=== PATIENT | female | born 1975 | race Caucasian/White ===

== ENCOUNTER 2019-12-03 10:21 | Outpatient (CLI) | payer OTHER, SELFPAY ==
--- NOTE | 2020-01-03 12:05 | WPDHOLTEREM ---
Holter/Event Monitor Holter/Event Monitor Date of procedure: 12/03/19 Procedure Type: 30 day event monitor Indications: Palpitations Conclusion: 1. 30 day event monitor between 12/03/19-01/01/20. This is a symptoms and triggered events only. There are 66 available transmissions for analysis. 2. Predominant rhythm is sinus rhythm, HR range 47-158 bpm. 3. There are occasional premature supraventricular complexes. There are 3 episodes of atrial tachycardia/PSVT, fastest at 153 bpm and longest lasting 22 beats. 4. There are occasional premature ventricular complexes. No ventricular tachycardia. 5. No significan pauses greater than 3 seconds. 6. Patient reports 53 episodes of symptoms of shortness of breath, heart racing, skipped beats, chest pain, dizziness, symptoms other than listed which demonstarte sinus rhythm, HR range 47-130 bpm, the 3 episodes of atrial tachycardia/PSVT described above and occasional PAC's and PVC.
== END 2019-12-03 10:22 | disposition home or self-care (01) ==
LOC: CHSCARD 10:26
PROVIDERS: PCP Internal Medicine; Visit Provider Internal Medicine
DX: R00.2 Palpitations (principal)
CPT/HCPCS: 93270

== ENCOUNTER 2019-12-10 08:41 | Outpatient (CLI) | payer OTHER, SELFPAY ==
--- NOTE | ~2019-12-10 | US_ITS ---
EXAMINATION: US thyroid DATE: 12/10/2019 09:02 INDICATION: Thyroiditis TECHNIQUE: Multiple ultrasound images of the thyroid were obtained. COMPARISON: None. FINDINGS: The right thyroid lobe measures 4.2 x 1.6 x 1.7 cm. The left thyroid lobe measures 4.2 x 1.1 x 1.5 c m. The thyroid isthmus measures 2 mm in thickness. There is mildly heterogeneous echogenicity with co arsened echotexture and mildly increased vascular flow on color Doppler both the left and right thyro id lobes consistent with given history of thyroiditis. No discrete nodules identified. IMPRESSION: 1. Mildly heterogeneous thyroid echogenicity with coarsened echotexture and mildly increased vascular flow on color Doppler consistent with given history of thyroiditis. No thyroid nodules identified. Reviewed, dictated and finalized at location A. IMPRESSION: 1. Mildly heterogeneous thyroid echogenicity with coarsened echotexture and mil dly increased vascular flow on color Doppler consistent with given history of t hyroiditis. No thyroid nodules identified.
== END 2019-12-10 08:42 | disposition home or self-care (01) ==
LOC: CHSIMG 08:43
PROVIDERS: PCP Internal Medicine; Visit Provider Internal Medicine
DX: E06.9 Thyroiditis, unspecified (principal)
CPT/HCPCS: 76536

== ENCOUNTER 2021-02-17 20:29 | Emergency (ER) | payer OTHER, SELFPAY ==
--- NOTE | ~2021-02-17 | CT_ITS ---
EXAMINATION: CT abdomen pelvis w con EXAM DATE: 02/17/2021 22:23 INDICATION: Right adnexal adnexal pain. Appendectomy. TECHNIQUE: Spiral CT of the abdomen and pelvis was performed following intravenous injection of 100 m L Omnipaque 350. Axial, coronal and sagittal images of the abdomen and pelvis were reviewed. The do se-length product (DLP) for this examination was 603.41 mGy-cm. The exposure was tailored according to patient size (auto mA exposure control), and iterative reconstruction (ASIR) was used as additiona l dose reduction technique. There is no prior study for comparison. FINDINGS: There is a central liver cyst measuring 1.5 cm. The liver, spleen, adrenal glands and panc reas are otherwise unremarkable. Small splenule. There is cholelithiasis within an otherwise unremar kable gallbladder. No evidence of obstructive biliary disease. Portal and splenic veins are patent. Kidneys enhance symmetrically. There is no hydronephrosis. The uterus is unremarkable. Both ovaries are normal in size. The right ovary is contiguous to the cec al base. The appendix is not identified and there is no regional acute inflammatory change or abscess . The bladder is unremarkable. There is no retroperitoneal or pelvic lymphadenopathy. The stomach and small bowel are unremarkable. There is expected amount of colonic stool. No free i ntraperitoneal gas. The heart is normal in size. There are no pericardial or pleural effusions. T he lung bases are unremarkable. There are no osteoblastic or osteolytic lesions identified. IMPRESSION: 1. No acute intra-abdominal findings. Unremarkable ovaries. 2. Cholelithiasis. Reviewed, dictated and finalized at location A.
[2021-02-17 20:45] VITALS: BP 147/93; PULSE 82; RESP 18; TEMP 36.3; O2SAT 98
--- NOTE | 2021-02-17 21:05 | ED.FEMALEGU ---
HPI - Female Genitourinary General Chief complaint: PHOTOC[employer]YING [employer]MENT [employer]ER Stated complaint: abd pain Time Seen by Provider: 02/17/21 20:40 Source: patient and RN notes reviewed Mode of arrival: ambulatory Limitations: no limitations History of Present Illness HPI Narrative: RLQ abdominal pain x this PM MD elicited complaint: back pain Pertinent past history: pyelonephritis Onset (ago): hour(s) Location of symptoms: RLQ Severity: moderate Severity scale (1-10): 8 Quality of pain: cramping, dull and aching Consistency: constant Vaginal discharge: none Vaginal bleeding: none Exacerbating factors: none Relieving factors: none Associated symptoms: abdominal pain and back pain Treatment prior to arrival: none Related Data Allergies Allergy/AdvReac Type Severity Reaction Status Date / Time Quinolones Allergy Mild Swelling Verified 08/22/19 17:20 azithromycin Allergy Hives Verified 08/22/19 17:20 Review of Systems Review of Systems: All systems reviewed & are unremarkable except as noted in HPI and below Constitutional: Constitutional: Reports as per HPI and Reports no additional constitutional complaints Eyes: Eyes: Reports as per HPI and Reports no additional eye complaints ENT: Reports system reviewed and no additional complaints, except as documented and Reports as per HPI Cardiovascular: Cardiovascular: Reports as per HPI and Reports no additional cardiovascular complaints Respiratory: Respiratory: Reports as per HPI and Reports no additional respiratory complaints Gastrointestinal: Gastrointestinal: Reports as per HPI and Reports no additional gastrointestinal complaints Genitourinary: Genitourinary: Reports pelvic pain and Reports flank pain Musculoskeletal: Musculoskeletal: Reports no additional musculoskeletal complaints and Reports as per HPI Integumentary/Breasts: Skin/Breast: Reports system reviewed and no additional complaints, except as docu and Reports as per HPI Neurologic: Reports system reviewed and no additional complaints, except as documented and Reports as per HPI Psychiatric: Psychiatric: Reports no additional psychiatric complaints and Reports as per HPI Endocrine: Endocrine: Reports no additional endocrine complaints and Reports as per HPI Hematologic/Lymphatic: Hematologic/Lymphatic: Reports no additional hematologic/lymphatic complaints and Reports as per HPI Allergic/Immunologic: Allergic/Immunologic: Reports no additional allergic/immunologic complaints and Reports as per HPI Exam Const: General: no acute distress Nutritional Appearance: well nourished Orientation/consciousness: patient oriented x3 HENMT: Head: normal to inspection Ears: TM's normal bilaterally Mouth: Yes moist mucous membranes Eyes: General: appearance normal, both eyes and all related structures Conjunctivae: conjunctivae normal Pupils: Equal, round and reactive pupils present EOM: EOMs intact bilaterally Neck: Neck: normal visual inspection and no lymphadenopathy Chest: Chest palpation & inspection: normal inspection of the chest Resp: Effort & Inspection: normal respiratory effort Auscultation: clear to auscultation bilaterally Cardio: Rate: regular rate Rhythm: regular rhythm GI: GI Palp: Yes Soft to palpation and Yes Tenderness to palpation present (GI) (mildly tender RLQ abdomen) Percussion: Yes other (RLQ tenderness) : General: Yes CVA tenderness Back/Spine/Pelvis: Back: CVA tenderness (Right) Skin: General skin exam: normal color Rashes: no rashes Neuro: General: patient oriented x3, moves all extremities, no meningeal signs, no focal motor deficits and CN's II-XI intact bilaterally Extrem: General: normal to inspection Psych: Mental Status: mental status grossly normal Attitude: cooperative Thought content: Yes Normal thought content present Judgement: Good judgement present (Psych) Course Course Emergency Course: Pt was stable in the ED. Reevaluation(s) Reevaluation #1: pt was stable in the ED. l
[2021-02-17] MEDS: SODIUM CHLORIDE 0.9% IV 500 ML 999 ML IV CONT (21:15)
[2021-02-17 21:17] LABS: Basophils Percent Auto 1.2 % (0.0-1.0); Eosinophils Absolute Auto 0.08 K/mm3 (0.02-0.50); Eosinophils Percent Auto 0.9 % (1.0-6.0); Hematocrit 38.4 % (35.0-49.0); Hemoglobin 12.5 g/dL (12.0-15.0); Immature Granulocyte Absolute 0.01 K/mm3 (0.00-0.00); Immature Granulocyte Percent A 0.1 % (0.0-0.0); Lymphocytes Absolute Auto 3.61 K/mm3 (1.10-4.50); Lymphocytes Percent Auto 42.3 % (18.0-42.0); Mean Corpuscular HGB Conc 32.6 g/dL (32.0-36.0); Mean Corpuscular Hemoglobin 28.7 pg (27.0-31.0); Mean Corpuscular Volume 88.1 fL (78.0-102.0); Monocytes Absolute Auto 0.67 K/mm3 (0.10-0.90); Monocytes Percent Auto 7.9 % (2.0-11.0); Neutrophils Absolute Auto 4.1 K/mm3 (1.7-7.2); Neutrophils Percent Auto 47.6 % (50.0-70.0); Platelet Count Result 332 K/mm3 (150-420); Red Blood Count 4.36 M/mm3 (4.20-5.40); Red Cell Distribution Width 13.7 % (11.6-14.4); White Blood Count 8.5 K/mm3 (4.8-10.8)
[2021-02-17] MEDS: ONDANSETRON INJ 4 MG/2 ML VIAL IV PUSH (21:17)
[2021-02-17] MEDS: PANTOPRAZOLE SODIUM IV 40 MG VIAL IV PUSH (21:17)
[2021-02-17 21:19] LABS: Appearance Urine Clear (Clear); Bilirubin Urine Negative (Negative); Color Urine Light Yellow (Yellow); Glucose Urine UA Negative (Negative); Ketones Urine Negative (Negative); Leukocyte Esterase Ur Negative (Negative); Nitrate Urine Negative (Negative); Protein Urine Negative (Negative); Specific Grav Ur 1.015 (1.010-1.020)
[2021-02-17 21:29] LABS: Add Urine Microscopic? YES; Bacteria Urine None seen /hpf; Blood Urine Trace-Intact (Negative); Squamous Epithelial Cell Urine Rare /hpf (Few); WBC Urine 0-3 /hpf (0-3)
[2021-02-17 21:39] LABS: Alanine Aminotransferase 39 U/L (14-59); Albumin Level 3.9 g/dL (3.4-5.0); Alkaline Phosphatase 95 U/L (46-116); Anion Gap 11 mmol/L (8-16); Aspartate Amino Transferase 28 U/L (15-37); Bilirubin,Total 1.1 mg/dL (0.00-1.00); Blood Urea Nitrogen 17 mg/dL (7-18); Calcium 9.2 mg/dL (8.5-10.1); Carbon Dioxide 26 mmol/L (21-32); Chloride 102 mmol/L (98-108); Estimated CRCL calculation 80 ml/min; Estimated Glomerular Filt Rate > 60; Glucose 98 mg/dL (70-99); Lipase 141 U/L (73-393); Osmolality Calculated 289 mOsm/kg (285-295); Potassium 3.7 mmol/L (3.5-5.1); Sodium 139 mmol/L (136-145); Total Protein 7.1 g/dL (6.4-8.2)
[2021-02-17 21:41] LABS: SPREG INTERNAL CONTROL Positive; Serum Qual hCG Negative
[2021-02-17] MEDS: KETOROLAC (*BKC) 60 MG/2 ML VIAL IM (21:45)
[2021-02-17 23:03] VITALS: BP 101/72; PULSE 78; RESP 18; O2SAT 98
== END 2021-02-17 23:10 | disposition home or self-care (01) ==
PROVIDERS: Emergency Provider Emergency Medicine; PCP Internal Medicine
DX: R10.31 Right lower quadrant pain (principal)
CPT/HCPCS: 36415; 74177; 80053; 81001; 83690; 84703; 85025; 96361; 96372; 96374; 96375; 99283; 99284; C9113; J1885; J2405; J7040; Q9967

== ENCOUNTER → 2021-04-17 09:27 | Outpatient (CLI) | payer OTHER, SELFPAY ==
--- NOTE | ~2021-04-17 | US_ITS ---
US transvaginal DATE: 04/17/2021 09:57 INDICATION: Severe pelvic pain, cramping TECHNIQUE: Real-time imaging via transabdominal and transvaginal approaches COMPARISON: 02/17/2021 CT abdomen pelvis FINDINGS: The uterus measures approximately 8.5 cm vertical dimension, up to 4.5 cm AP and 5.6 cm tra nsverse dimension. The central endometrial echo complex measures up to 1.4 cm anteroposterior dimension. Probable 1.5 and 2 cm uterine fibroids. The right ovary measures 2.1 x 1.7 x 2.4 cm, with vascular flow. The left ovary measures 3.4 x 2.2 x 3.3 cm, with vascular flow. There is a 1.5 x 2.2 cm hypoechoic le lilo with surrounding vascularity, possibly an involuting or complicated cyst. No pelvic mass or free fluid collection is noted otherwise. IMPRESSION: Approximately 2.2 cm possible complicated cyst or mass of left ovary. Short term pelvic ultrasound follow up is recommended. Reviewed, dictated and finalized at Location A. Reviewed, dictated and finalized at location A. IMPRESSION: Approximately 2.2 cm possible complicated cyst or mass of left ovar y. Short term pelvic ultrasound follow up is recommended.
== END ==
PROVIDERS: Visit Provider Nurse Practitioner
DX: R10.2 Pelvic and perineal pain (principal)
CPT/HCPCS: 76830

== ENCOUNTER 2021-06-05 09:28 | Outpatient (CLI) | payer OTHER, SELFPAY ==
--- NOTE | ~2021-06-05 | US_ITS ---
EXAMINATION: US pelvic complete w TV DATE: 06/05/2021 10:17 INDICATION: Follow-up left ovarian cyst Comparison:Ultrasound dated 04/17/2021 TECHNIQUE: Multiple transabdominal and endovaginal sonographic images of the pelvis performed. FINDINGS: The uterus measures 8.7 x 3.4 x 6.2 cm. There are uterine fibroids, largest posteriorly measuring 2 cm. The endometrial complex measures 9 mm. The right ovary is not visualized. Left ovary is unremarkable measuring 2.6 x 2 x 1.6 cm. There is no free fluid in the pelvis. There are no abnormal masses seen on either side. IMPRESSION: 1. Uterine fibroids measuring up to 2 cm maximum dimension. 2: Interval resolution of left ovarian cyst. Reviewed, dictated and finalized at location A.
== END 2021-06-05 09:29 ==
PROVIDERS: PCP Internal Medicine; Visit Provider Obstetrics & Gynecology Gynecology
DX: N83.202 Unspecified ovarian cyst, left side (principal)
CPT/HCPCS: 76830; 76856

== ENCOUNTER 2021-08-16 00:44 | Day surgery (SDC) | payer OTHER, SELFPAY ==
[2021-08-09 14:16] VITALS: BMI 31.8
--- NOTE | 2021-08-09 14:25 | PC.NURSE ---
Report to the Outpatient Waiting Room, entrance under the green pavilion located off [facility], at time 0715 on date 08/16/21. OR Time: 0915. - You and your visitor will be asked a series of questions to screen for COVID 19 for your protection. - A mask is required within the hospital. - Only one visitor is allowed at this time. Patient visitors will be guided where to wait when not with patient. Preoperative COVID Testing Requirements: No COVID Test needed if: (proof is required; if not received patient will have Rapid Test prior to entry) - Patient has received COVID Vaccine at least 14 days prior to procedure date or - Patient has positive COVID test result within last 90 days of surgery date. COVID Test needed if above criteria is not met If not COVID vaccinated a COVID test must be conducted within 72 hours of surgery and patient is asked to isolate self from time of testing until procedure. You will go to the [facility] for your COVID testing. The [facility] is located at the corner of [address] [facility]. You will only be called if COVID results are positive and your surgeon may reschedule your elective surgery date. Patients may have clear liquids (water, carbonated beverages, clear teas, apple juice) until 3 hours prior to surgery with a maximum of 20 ounces. - No food from midnight until time of surgery - Infants may have breast milk until 4 hours before surgery, infant formula 6 hours prior to surgery. - Children will be allowed to drink immediately following surgery. If applicable, please bring a bottle or sippy cup to assist with drinking. Juice, water, soda, and popsicles are readily available. For infants on formula, please bring formula the day of surgery. Pacifiers are allowed. Take the following medications with a SIP of water the morning of surgery: ESCITALOPRAM, LEVOTHYROXINE Medications to discontinue per physician: VITAMINS/SUPPLEMENTS Date to take last dose: 08/12/21 OK TO CONTINUE IBUPROFEN PER DR. DAVIS (PER PT) Please no make-up, nail ukrainian, hairspray, perfume, deodorant, or body powder the day of surgery. No jewelry (including any body piercings) or valuables the day of surgery, leave them at home. Please take a shower or bath the night before, or the morning of, surgery with an antibacterial soap. Wear comfortable, loose fitting clothing. Children are encouraged to wear pajamas. - Jewelry must be removed prior to entering the operating room. Rings and piercings that are not removed may be cut off. - The hospital will not accept responsibility for valuables. - Please leave all valuables, including medications, at home the day of surgery. If you are going home after surgery, a licensed delivery driver must drive you home. - NO public transportation without another adult. - We recommend that an adult stay with you for 24 hours following discharge. - We also recommend that you do not drive, make important decision, drink alcoholic beverages, or take any drugs that were not prescribed by your health care provider for at least 24 hours after your discharge time. For Pediatric surgeries, we recommend two adults accompany the child home (only one inside the building at this time). Follow any additional instructions given to you from your surgeon. Telephone instructions given to JUDITH PATTEN and asked if any additional questions and then verbalized understanding. Patient advised to call surgeon office or pre surgery nurse liaison [phone] if any additional questions.
[2021-08-16] MEDS: ACETAMINOPHEN 500 MG TABLET 1000 MG PO (07:14)
--- NOTE | 2021-08-16 07:25 | WPDHPUPDATE1 ---
History and Physical Update Update Date/Time: 08/16/21 07:25 History and Physical has been reviewed, including an updated exam of the patient. There are NO changes in the patient's condition. Risks, benefits, and alternatives have been discussed and questions answered. Patient agrees to proceed with procedure.
--- NOTE | 2021-08-16 07:25 | PM.HPGS ---
History of Present Illness History of Present Illness Consent: Risks, benefits, and alternatives have been discussed and questions answered. Patient agrees to proceed with procedure. Chief complaint: Menorrhagia and fibroids Narrative: Bishnu Suggs is a 45 year old female with menorrhagia and dysmenorrhea. Patient had normal labs. Ultrasound shows small fibroids. Plan is to proceed with D&C hysteroscopy possible MyoSure. Risks of infection, bleeding, perforation, and possible pathology were reviewed. Review of Systems Gastrointestinal: Gastrointestinal: Reports other (Dysmenorrhea) [facility] Past Medical History Medical History (Updated 08/16/21 @ 07:28 by Conchita Escobedo MD) Asthma Hypothyroid (normal spontaneous vaginal delivery) X2 Surgical History Surgical History (Updated 08/16/21 @ 07:27 by Conchita Escobedo MD) History of bilateral tubal ligation History of ovarian cystectomy Age 16 right side Social History Social History Smoking status: Never smoker Alcohol intake: current Alcohol use details: 2/EVERY 2-3 WEEKS Substance use: never Substance use type: does not use Living arrangements: with family Spiritual care concerns: No Meds Home Medications and Allergies Home Medications Medication Instructions Recorded Confirmed Type escitalopram oxalate 10 mg PO DAILY 08/09/21 08/16/21 History ferrous sulfate [FeroSul] 325 mg PO BID 08/09/21 08/16/21 History ibuprofen 600 mg PO Q6H PRN 08/09/21 08/16/21 History levothyroxine 25 mcg PO DAILY 08/09/21 08/16/21 History pantoprazole 40 mg PO BID 08/09/21 08/16/21 History Allergies Allergy/AdvReac Type Severity Reaction Status Date / Time Quinolones Allergy Mild Swelling Verified 08/16/21 07:09 azithromycin Allergy Hives Verified 08/16/21 07:09 Exam Const: General: healthy appearing and alert Orientation/consciousness: patient oriented x3 Resp: Effort & Inspection: normal respiratory effort Auscultation: clear to auscultation bilaterally Cardio: Rate: regular rate Rhythm: regular rhythm GI: GI Palp: Yes Soft to palpation, No Tenderness to palpation present (GI) and No Palpable mass present : External Female Exam: normal external appearance Speculum Exam - Vagina: normal appearance of the vagina and normal vaginal discharge Speculum Exam - Cervix: normal appearance of the cervix Bimanual exam- vagina & uterus: uterine size normal and consistency normal Bimanual Exam- Adnexa, other: normal adnexae and No adnexal tenderness Neuro: General: patient oriented x3 Assessment and Plan Assessment and plan (1) Menorrhagia: Code(s): N92.0 - Excessive and frequent menstruation with regular cycle Status: Acute Assessment and Plan: Plan to proceed with D&C hysteroscopy possible MyoSure.
--- NOTE | 2021-08-16 07:55 | P.PNAN_ITS ---
Anes - Eval Pre Procedure Procedure: Operation Date: 08/16/21 09:15 Proposed Procedures p Hysteroscopy Dilation and Curettage with Myosure - Conchita Escobedo MD Date/Time: 08/16/21 07:55 Surgeon: Gregg Pre Op Diagnosis: Menorrhagia and fibroids Patient Data Age: 45 Gender: F Height: 1.6 m Weight: 81.65 kg Allergies Allergy/AdvReac Type Severity Reaction Status Date / Time Quinolones Allergy Mild Swelling Verified 08/16/21 07:09 azithromycin Allergy Hives Verified 08/16/21 07:09 Home Medications Medication Instructions Recorded Confirmed Type escitalopram oxalate 10 mg PO DAILY 08/09/21 08/16/21 History ferrous sulfate [FeroSul] 325 mg PO BID 08/09/21 08/16/21 History ibuprofen 600 mg PO Q6H PRN 08/09/21 08/16/21 History levothyroxine 25 mcg PO DAILY 08/09/21 08/16/21 History pantoprazole 40 mg PO BID 08/09/21 08/16/21 History Patient hx anesthesia problems: none Family hx anesthesia problems: none Results Review: All pre-operative results and documents have been reviewed as part of the pre-operative evaluation. [facility] Past Medical History Medical History Asthma Hypothyroid (normal spontaneous vaginal delivery) X2 Surgical History Surgical History History of bilateral tubal ligation History of ovarian cystectomy Age 16 right side Social History Social History Smoking status: Never smoker Alcohol intake: current Alcohol use details: 2/EVERY 2-3 WEEKS Substance use: never Substance use type: does not use Living arrangements: with family Spiritual care concerns: No Exam Day of Procedure 08/16/21 07:55 Patient weight: obese Heart: regular rate and rhythm (H/O PSVT. regular now. No meds) Lungs: clear to auscultation Airway: Mallampati scale class II (short chin) Neurological: alert and oriented
[2021-08-16] MEDS: LACTATED RINGERS 1,000 ML 30 ML IV CONT (08:00)
[2021-08-16 08:06] VITALS: BP 125/71; PULSE 55; TEMP 36.4; O2SAT 100
[2021-08-16 08:08] LABS: Hematocrit 36.6 % (37.0-47.0)
--- NOTE | 2021-08-16 08:13 | WPDANESEFPP ---
Anes - Eval Final PreProcedure Day of Procedure 08/16/21 08:13 Patient weight: obese Heart: regular rate and rhythm Lungs: clear to auscultation Airway: Mallampati scale class II Neurological: alert and oriented Last oral intake: >/= 8 hours ASA classification: II Emergent: no Anesthetic plan: proceed Anesthesia type and monitoring: general GIVS and standard monitoring Results Review: All pre-operative results and documents have been reviewed as part of the pre-operative evaluation. Informed Consent: The patient's anesthetic plan and its attendant risks and benefits were discussed with the patient/family/POA. Questions were solicited and answers provided to the satisfaction of the patient/family/POA.
[2021-08-16] MEDS: KETOROLAC 30 MG/ML VIAL (*BKC) IV PUSH (09:06)
--- NOTE | 2021-08-16 09:25 | P.OP_ITS ---
Procedure Note - Detailed Date of Procedure 08/16/21 Pre-op Diagnosis Menorrhagia and fibroids Post-op Diagnosis same Procedure Performed D&C hysteroscopy with MyoSure Surgeon Conchita Escobedo MD Anesthesia MAC and local Findings Uterus sounds to 8cm. There is a thickened area anteriorly to the left and po steriorly to the right that are possible fibroids versus polyps. Description of Procedure The patient was taken to the operating room and placed under anesthesia in the dorsal lithotomy position. She was prepped and draped in the usual sterile fashion. The bivalve speculum was placed in the vagina, cervix is grasped on the anterior lip with a tenaculum, and injected with 1% lidocaine in each quadrant. The uterus is sounded to 8cm. The MyoSure hysteroscope was placed with the stated findings. The MyoSure device is placed and the areas stated above are removed under direct visualization with the MyoSure device. The resection appears to be more polyp like in fibroid like given the consistency of the masses. The MyoSure device and camera were then removed. The medium sharp curette is used to sharply curette the endometrium until a good uterine cry was noted in all areas. All instruments are removed. Sponge, needle, and instrument counts are correct per the OR staff. Estimated Blood Loss 5 Drains No Packing No Pathology yes (Endometrial shavings and curettings) Complications No immediate complications Condition stable Disposition PACU
[2021-08-16 09:29] VITALS: BP 106/66; PULSE 85; RESP 16; O2SAT 99
[2021-08-16] MEDS: fentaNYL CITRATE INJ (*CRX) 100 MCG/2 ML VIAL 25 MCG IV PUSH ×4 (09:44→10:20)
[2021-08-16 09:55] VITALS: BP 132/67; PULSE 82; RESP 16; O2SAT 99
[2021-08-16 10:25] VITALS: BP 116/64; PULSE 68; RESP 16
[2021-08-16] MEDS: oxyCODONE HCL (*CRX) 5 MG TAB IR PO (10:34)
[2021-08-16 10:55] VITALS: BP 106/57; PULSE 53; RESP 16
== END 2021-08-16 11:07 | disposition home or self-care (01) ==
PROVIDERS: PCP Internal Medicine; Visit Provider Obstetrics & Gynecology Gynecology
PROC: 0U5B8ZZ Destruction of Endometrium, Via Natural or Artificial Opening Endoscopic (ICD-10-PCS; CPT 58563; principal; 2021-08-16 09:15)
DX: N92.0 Excessive and frequent menstruation with regular cycle (principal); N94.6 Dysmenorrhea, unspecified; D25.9 Leiomyoma of uterus, unspecified; J45.909 Unspecified asthma, uncomplicated; E03.9 Hypothyroidism, unspecified; E66.9 Obesity, unspecified; Z68.32 Body mass index [BMI] 32.0-32.9, adult
CPT/HCPCS: 58558; 36415; 85014; 85018; 88305; A9270; J1885; J2250; J2704; J3010; J7030; J7120

== ENCOUNTER 2021-09-17 02:45 | Emergency (ER) | payer BC, SELFPAY ==
--- NOTE | ~2021-09-17 | XR_ITS ---
EXAMINATION: XR chest 1V portable 09/17/2021 04:43 INDICATION: Cough and congestion PROCEDURE: AP portable chest COMPARISON: 11/06/2018 FINDINGS: The lungs are clear. The cardiomediastinal silhouette is within normal limits. There are no pleural effusions. There is no pneumothorax suspected. IMPRESSION: 1: NO ACUTE CARDIOPULMONARY DISEASE. Reviewed, dictated and finalized at location D. TING SUPERVISOR
[2021-09-17 02:52] VITALS: BP 141/63; PULSE 97; RESP 22; TEMP 36.8; O2SAT 99
--- NOTE | 2021-09-17 02:58 | ECG_ITS ---
Measurements Intervals [place] Rate: 70 P: 77 ID: [id number] QRS: 53 QRSD: 88 T: 36 QT: 388 QTc: 421 Interpretive Statements SINUS RHYTHM WITH SINUS ARRHYTHMIA POSSIBLE LEFT ATRIAL ENLARGEMENT MINIMAL Q WAVES- INF/LAT LEADS BORDERLINE T WAVE ABNORMALITY- ANTERIOR LEADS BASELINE ARTIFACT- I, II, III, AVL, AVF, V3-V6 BORDERLINE ECG Electronically Signed On 09-17-2021 6:18:38 PLATE FITTER by Andrea Maher D.O.
--- NOTE | 2021-09-17 03:08 | ED.DIZZY ---
HPI - Dizziness General Chief Complaint: Dizziness Stated Complaint: dizziness/nauseated Time Seen by Provider: 09/17/21 03:08 Source: patient Mode of arrival: ambulatory Limitations: no limitations History of Present Illness HPI Narrative: this is a 45-year-old female the history of hypothyroidism and GERD was diagnosed with COVID 2 weeks ago, presents this morning with some dizziness and sensation of the room spinning has a cough that is nonproductive with no shortness of breath no fever chills no chest pain no dysuria does have some nausea with no vomiting no abdominal pain no diarrhea constipation. MD elicited complaint: dizziness Onset (ago): day(s) Timing: gradual onset Severity: moderate Description: sense of movement and room spinning History of similar symptoms: No Exacerbating factors: change in body position Relieving factors: remaining still Associated symptoms: nausea Related Data Home Medications Medication Instructions Recorded Confirmed escitalopram oxalate 10 mg PO DAILY 08/09/21 09/17/21 ferrous sulfate [FeroSul] 325 mg PO BID 08/09/21 09/17/21 levothyroxine 25 mcg PO DAILY 08/09/21 09/17/21 pantoprazole 40 mg PO BID 08/09/21 09/17/21 Allergies Allergy/AdvReac Type Severity Reaction Status Date / Time Quinolones Allergy Mild Swelling Verified 09/17/21 02:52 azithromycin Allergy Hives Verified 09/17/21 02:52 Review of Systems Review of Systems: All systems reviewed & are unremarkable except as noted in HPI and below PMFSH Past Medical History Medical History Asthma Hypothyroid (normal spontaneous vaginal delivery) X2 Surgical History Surgical History History of bilateral tubal ligation History of ovarian cystectomy Age 16 right side Social History Social History Smoking status: Never smoker Alcohol intake: current Alcohol use details: 2/EVERY 2-3 WEEKS Substance use: never Substance use type: does not use Spiritual care concerns: No Exam Const: General: no acute distress Orientation/consciousness: patient oriented x3 HENMT: Head: normal to inspection Ears: TM abnormal Eyes: Conjunctivae: conjunctivae normal Pupils: Equal, round and reactive pupils present Neck: Neck: normal visual inspection, no lymphadenopathy and no meningeal signs Chest: Chest palpation & inspection: normal inspection of the chest Resp: Effort & Inspection: normal respiratory effort Auscultation: clear to auscultation bilaterally Cardio: Rate: regular rate Rhythm: regular rhythm Course Course Emergency Course: labs reviewed with patient patient is COVID positive and has urinary tract infection chest x-ray reviewed with patient shows no acute cardiopulmonary event. Vital Signs Vital signs: Vital Signs Temperature 36.8 C 09/17/21 02:52 Pulse Rate 97 09/17/21 02:52 Respiratory Rate 22 H 09/17/21 02:52 Blood Pressure 141/63 H 09/17/21 02:52 Pulse Oximetry 99 09/17/21 02:52 Temperature 36.8 C 09/17/21 02:52 Pulse Rate 97 09/17/21 02:52 Respiratory Rate 22 H 09/17/21 02:52 Blood Pressure 141/63 H 09/17/21 02:52 Pulse Oximetry 99 09/17/21 02:52 MDM - Dizziness Lab Data Result diagrams: 09/17/21 03:26 09/17/21 03:26 Labs: Lab Results 09/17/21 09/17/21 09/17/21 Range/Units 03:26 03:26 03:26 WBC 5.7 (4.8-10.8) K/mm3 RBC 4.08 L (4.20-5.40) M/mm3 Hgb 11.8 L (12.0-15.0) g/dL Hct 36.2 (35.0-49.0) % MCV 88.7 (78.0-102.0) fL MCH 28.9 (27.0-31.0) pg MCHC 32.6 (32.0-36.0) g/dL RDW 14.6 H (11.6-14.4) % Plt Count 294 (150-420) K/mm3 MPV 11.1 (9.2-11.8) fl Immature Gran % (Auto) 0.3 H (0.0-0.0) % Neut % (Auto) 38.4 L (50.0-70.0) % Lymph % (Auto) 47.5 H (18.0-42.0) % Sully % (Auto) 10
[2021-09-17] MEDS: MECLIZINE HCL 25 MG TABLET PO (03:09)
[2021-09-17] MEDS: SODIUM CHLORIDE 0.9% IV 1,000 ML 999 ML IV CONT (03:10)
[2021-09-17] MEDS: ONDANSETRON INJ 4 MG/2 ML VIAL IV PUSH (03:12)
--- NOTE | 2021-09-17 03:20 | PC.NURSE ---
covid nasal swab sent to lab
[2021-09-17 03:29] LABS: Basophils Absolute Auto 0.08 K/mm3 (0.00-0.10); Basophils Percent Auto 1.4 % (0.0-1.0); Eosinophils Absolute Auto 0.11 K/mm3 (0.02-0.50); Eosinophils Percent Auto 1.9 % (1.0-6.0); Hematocrit 36.2 % (35.0-49.0); Hemoglobin 11.8 g/dL (12.0-15.0); Immature Granulocyte Absolute 0.02 K/mm3 (0.00-0.00); Immature Granulocyte Percent A 0.3 % (0.0-0.0); Lymphocytes Absolute Auto 2.72 K/mm3 (1.10-4.50); Lymphocytes Percent Auto 47.5 % (18.0-42.0); Mean Corpuscular HGB Conc 32.6 g/dL (32.0-36.0); Mean Corpuscular Hemoglobin 28.9 pg (27.0-31.0); Mean Corpuscular Volume 88.7 fL (78.0-102.0); Mean Platelet Volume 11.1 fl (9.2-11.8); Monocytes Percent Auto 10.5 % (2.0-11.0); Neutrophils Absolute Auto 2.2 K/mm3 (1.7-7.2); Neutrophils Percent Auto 38.4 % (50.0-70.0); Platelet Count Result 294 K/mm3 (150-420); Red Blood Count 4.08 M/mm3 (4.20-5.40); Red Cell Distribution Width 14.6 % (11.6-14.4); White Blood Count 5.7 K/mm3 (4.8-10.8)
[2021-09-17 03:43] LABS: Alanine Aminotransferase 35 U/L (14-59); Albumin Level 3.5 g/dL (3.4-5.0); Alkaline Phosphatase 86 U/L (46-116); Anion Gap 9 mmol/L (8-16); Aspartate Amino Transferase 21 U/L (15-37); Bilirubin,Total 0.7 mg/dL (0.00-1.00); Blood Urea Nitrogen 16 mg/dL (7-18); Calcium 8.4 mg/dL (8.5-10.1); Carbon Dioxide 27 mmol/L (21-32); Chloride 105 mmol/L (98-108); Estimated CRCL calculation 73 ml/min; Estimated Glomerular Filt Rate > 60; Glucose 115 mg/dL (70-99); Osmolality Calculated 294 mOsm/kg (285-295); Potassium 4.2 mmol/L (3.5-5.1); Sodium 141 mmol/L (136-145); Total Protein 6.5 g/dL (6.4-8.2)
[2021-09-17 04:04] LABS: SARS-CoV-2 RNA PCR Positive (Negative)
[2021-09-17 04:06] LABS: Add Urine Microscopic? YES; Appearance Urine Clear (Clear); Bilirubin Urine Negative (Negative); Blood Urine 1+ (Negative); Color Urine Light Yellow (Yellow); Glucose Urine UA Negative (Negative); Ketones Urine Trace (Negative); Leukocyte Esterase Ur Negative (Negative); Nitrate Urine Negative (Negative); Protein Urine Negative (Negative); Specific Grav Ur >= 1.030 (1.010-1.020); Urobilinogen Urine 0.2 mg/dL (0.2-1.0); pH Urine 5.5 (5.0-8.0)
[2021-09-17 04:08] LABS: Pregnancy On Board Control Positive; Urine Pregnancy Test Negative
[2021-09-17 04:11] LABS: Bacteria Urine 1+ /hpf; Squamous Epithelial Cell Urine Moderate /hpf (Few); WBC Urine 0-3 /hpf (0-3)
[2021-09-17 04:12] LABS: Mucus Urine Few /lpf
[2021-09-17 06:25] VITALS: BP 104/70; PULSE 94; RESP 20; O2SAT 99
[2021-09-17 14:43] LABS: Free T3 2.31 pg/mL (2.18-3.98); Free T4 Free Thyroxine 0.89 ng/dL (0.76-1.46); Thyroid Stimulating Hormone 6.21 uIU/mL (0.36-3.74)
--- NOTE | 2021-09-20 21:06 | PC.NURSE ---
late note: pt refused a temperature at discharge time.
== END 2021-09-17 06:26 | disposition home or self-care (01) ==
PROVIDERS: Emergency Provider Emergency Medicine; PCP Internal Medicine
DX: U07.1 COVID-19 (principal); N30.00 Acute cystitis without hematuria
CPT/HCPCS: 36415; 71045; 80053; 81001; 81025; 84439; 84443; 84481; 85025; 93005; 96361; 96374; 99283; 99284; A9270; C9803; J2405; J7030; U0003; U0005

== ENCOUNTER 2022-03-19 07:09 | Outpatient (CLI) | payer BC, SELFPAY ==
[2022-03-19 07:25] LABS: Add Urine Microscopic? YES; Appearance Urine Clear (Clear); Basophils Percent Auto 1.8 % (0.0-1.0); Bilirubin Urine Negative (Negative); Blood Urine Negative (Negative); Color Urine Light Yellow (Yellow); Eosinophils Absolute Auto 0.09 K/mm3 (0.02-0.50); Eosinophils Percent Auto 1.6 % (1.0-6.0); Glucose Urine UA Negative (Negative); Hematocrit 41.1 % (35.0-49.0); Hemoglobin 13.3 g/dL (12.0-15.0); Immature Granulocyte Absolute 0.02 K/mm3 (0.00-0.00); Immature Granulocyte Percent A 0.4 % (0.0-0.0); Ketones Urine Negative (Negative); Leukocyte Esterase Ur 2+ (Negative); Lymphocytes Absolute Auto 2.53 K/mm3 (1.10-4.50); Mean Corpuscular HGB Conc 32.4 g/dL (32.0-36.0); Mean Corpuscular Hemoglobin 29.9 pg (27.0-31.0); Mean Corpuscular Volume 92.4 fL (78.0-102.0); Mean Platelet Volume 11.3 fl (9.2-11.8); Monocytes Absolute Auto 0.41 K/mm3 (0.10-0.90); Monocytes Percent Auto 7.3 % (2.0-11.0); Neutrophils Absolute Auto 2.5 K/mm3 (1.7-7.2); Neutrophils Percent Auto 43.9 % (50.0-70.0); Nitrate Urine Negative (Negative); Platelet Count Result 301 K/mm3 (150-420); Protein Urine Negative (Negative); Red Blood Count 4.45 M/mm3 (4.20-5.40); Specific Grav Ur 1.015 (1.010-1.020); Urobilinogen Urine 0.2 mg/dL (0.2-1.0); White Blood Count 5.6 K/mm3 (4.8-10.8); pH Urine 7.5 (5.0-8.0)
[2022-03-19 07:34] LABS: Bacteria Urine 1+ /hpf; RBC Urine None seen /hpf (0-2); Squamous Epithelial Cell Urine Moderate /hpf (Few)
[2022-03-19 07:43] LABS: Hemoglobin A1C 5.2 % (<5.7)
[2022-03-19 07:57] LABS: Alanine Aminotransferase 55 U/L (14-59); Albumin Level 3.9 g/dL (3.4-5.0); Alkaline Phosphatase 93 U/L (46-116); Anion Gap 9 mmol/L (8-16); Aspartate Amino Transferase 29 U/L (15-37); Bilirubin,Total 1.1 mg/dL (0.00-1.00); Blood Urea Nitrogen 16 mg/dL (7-18); Carbon Dioxide 26 mmol/L (21-32); Chloride 105 mmol/L (98-108); Estimated Glomerular Filt Rate > 60; Ferritin 120 ng/mL (8-252); Free T3 2.17 pg/mL (2.18-3.98); Glucose 98 mg/dL (70-99); Iron 99 ug/dL (50-170); Osmolality Calculated 291 mOsm/kg (285-295); Potassium 4.5 mmol/L (3.5-5.1); Sodium 140 mmol/L (136-145); Thyroid Stimulating Hormone 3.39 uIU/mL (0.36-3.74); Total Protein 7.2 g/dL (6.4-8.2)
== END 2022-03-19 07:10 | disposition home or self-care (01) ==
LOC: CHSLAB 07:10
PROVIDERS: PCP Internal Medicine; Visit Provider Internal Medicine
DX: E03.8 Other specified hypothyroidism (principal); D50.0 Iron deficiency anemia secondary to blood loss (chronic); R73.01 Impaired fasting glucose
CPT/HCPCS: 36415; 80053; 81001; 82728; 83036; 83540; 84439; 84443; 84481; 85025

== ENCOUNTER 2022-07-05 09:06 | Outpatient (CLI) | payer BC, SELFPAY ==
--- NOTE | ~2022-07-05 | XR_ITS ---
EXAMINATION: XR chest 2V DATE: 07/05/2022 09:39 INDICATION: Cough and wheezing TECHNIQUE: PA and lateral views of the chest were obtained. COMPARISON: Chest radiograph dated 09/17/2021 FINDINGS: The lungs remain clear with no focal airspace opacities, pulmonary edema, pleural effusion or pneumot horax. The cardiomediastinal silhouette is normal. Visualized bones and soft tissues are unremarkable . IMPRESSION: 1. No acute cardiopulmonary disease. Reviewed, dictated and finalized at location B. S PERSON
[2022-07-05 09:31] LABS: Basophils Absolute Auto 0.11 K/mm3 (0.00-0.10); Basophils Percent Auto 1.9 % (0.0-1.0); Eosinophils Absolute Auto 0.33 K/mm3 (0.02-0.50); Eosinophils Percent Auto 5.7 % (1.0-6.0); Hematocrit 40.4 % (35.0-49.0); Hemoglobin 13.4 g/dL (12.0-15.0); Immature Granulocyte Absolute 0.01 K/mm3 (0.00-0.00); Immature Granulocyte Percent A 0.2 % (0.0-0.0); Lymphocytes Absolute Auto 2.62 K/mm3 (1.10-4.50); Mean Corpuscular HGB Conc 33.2 g/dL (32.0-36.0); Mean Corpuscular Hemoglobin 30.8 pg (27.0-31.0); Mean Corpuscular Volume 92.9 fL (78.0-102.0); Mean Platelet Volume 11.3 fl (9.2-11.8); Monocytes Absolute Auto 0.41 K/mm3 (0.10-0.90); Neutrophils Absolute Auto 2.3 K/mm3 (1.7-7.2); Neutrophils Percent Auto 40.2 % (50.0-70.0); Platelet Count Result 289 K/mm3 (150-420); Red Blood Count 4.35 M/mm3 (4.20-5.40); Red Cell Distribution Width 13.2 % (11.6-14.4); White Blood Count 5.8 K/mm3 (4.8-10.8)
[2022-07-05 09:42] LABS: Alanine Aminotransferase 56 U/L (14-59); Albumin Level 3.9 g/dL (3.4-5.0); Alkaline Phosphatase 107 U/L (46-116); Anion Gap 9 mmol/L (8-16); Aspartate Amino Transferase 30 U/L (15-37); Bilirubin,Total 0.9 mg/dL (0.00-1.00); Blood Urea Nitrogen 14 mg/dL (7-18); Calcium 9.2 mg/dL (8.5-10.1); Carbon Dioxide 26 mmol/L (21-32); Chloride 106 mmol/L (98-108); Estimated Glomerular Filt Rate > 60; Glucose 95 mg/dL (70-99); Osmolality Calculated 292 mOsm/kg (285-295); Potassium 4.2 mmol/L (3.5-5.1); Sodium 141 mmol/L (136-145); Total Protein 7.4 g/dL (6.4-8.2)
[2022-07-05 09:55] LABS: Strep Group A RT-PCR Not Detected (Negative)
[2022-07-05 10:13] LABS: Influenza A QL RT-PCR Negative (Negative); Influenza B QL RT-PCR Negative (Negative); SARS-CoV-2 RNA PCR Negative (Negative)
== END 2022-07-05 09:07 | disposition home or self-care (01) ==
LOC: CHSLAB 09:10
PROVIDERS: PCP Internal Medicine; Visit Provider Internal Medicine
DX: R05.9 Cough, unspecified (principal); R06.2 Wheezing; Z20.822 Contact with and (suspected) exposure to COVID-19
CPT/HCPCS: 36415; 71046; 80053; 85025; 87636; 87651

== ENCOUNTER 2022-08-18 08:04 | Outpatient (CLI) | payer BC, SELFPAY ==
[2022-08-18 08:26] LABS: Basophils Absolute Auto 0.07 K/mm3 (0.00-0.10); Basophils Percent Auto 1.1 % (0.0-1.0); Eosinophils Absolute Auto 0.07 K/mm3 (0.02-0.50); Eosinophils Percent Auto 1.1 % (1.0-6.0); Hematocrit 39.9 % (35.0-49.0); Immature Granulocyte Absolute 0.02 K/mm3 (0.00-0.00); Immature Granulocyte Percent A 0.3 % (0.0-0.0); Immature Reticulocyte Fraction 15.2 % (2.0-16.52); Lymphocytes Absolute Auto 3.02 K/mm3 (1.10-4.50); Lymphocytes Percent Auto 49.1 % (18.0-42.0); Mean Corpuscular HGB Conc 32.6 g/dL (32.0-36.0); Mean Corpuscular Hemoglobin 30.3 pg (27.0-31.0); Mean Platelet Volume 10.9 fl (9.2-11.8); Monocytes Absolute Auto 0.51 K/mm3 (0.10-0.90); Monocytes Percent Auto 8.3 % (2.0-11.0); Neutrophils Absolute Auto 2.5 K/mm3 (1.7-7.2); Neutrophils Percent Auto 40.1 % (50.0-70.0); Platelet Count Result 334 K/mm3 (150-420); Red Blood Count 4.29 M/mm3 (4.20-5.40); Red Cell Distribution Width 13.6 % (11.6-14.4); Reticulocyte Percent 1.55 % (0.50-1.50); Reticulocytes Absolute 0.07 M/mm3 (0.02-0.1); White Blood Count 6.2 K/mm3 (4.8-10.8)
[2022-08-18 09:36] LABS: Alanine Aminotransferase 52 U/L (14-59); Albumin Level 3.7 g/dL (3.4-5.0); Alkaline Phosphatase 87 U/L (46-116); Anion Gap 5 mmol/L (8-16); Aspartate Amino Transferase 34 U/L (15-37); Bilirubin,Total 1.1 mg/dL (0.00-1.00); Blood Urea Nitrogen 19 mg/dL (7-18); Calcium 9.1 mg/dL (8.5-10.1); Carbon Dioxide 29 mmol/L (21-32); Chloride 106 mmol/L (98-108); Estimated Glomerular Filt Rate > 60; Ferritin 59 ng/mL (8-252); Free T3 2.64 pg/mL (2.18-3.98); Free T4 Free Thyroxine 0.78 ng/dL (0.76-1.46); Glucose 89 mg/dL (70-99); Iron 127 ug/dL (50-170); Osmolality Calculated 291 mOsm/kg (285-295); Potassium 4.9 mmol/L (3.5-5.1); Sodium 140 mmol/L (136-145); Total Protein 6.7 g/dL (6.4-8.2)
[2022-08-18 10:06] LABS: Lactate Dehydrogenase 173 U/L (81-234)
== END 2022-08-18 08:05 | disposition home or self-care (01) ==
PROVIDERS: PCP Internal Medicine; Visit Provider Internal Medicine
DX: D50.0 Iron deficiency anemia secondary to blood loss (chronic) (principal); E03.4 Atrophy of thyroid (acquired); R00.2 Palpitations
CPT/HCPCS: 36415; 80053; 82728; 83540; 83615; 84439; 84443; 84481; 85025; 85046; 88184; 88185; 88189

== ENCOUNTER 2022-12-14 15:48 | Outpatient (CLI) | payer BC, SELFPAY ==
[2022-12-14 16:00] LABS: Basophils Absolute Auto 0.09 K/mm3 (0.00-0.10); Basophils Percent Auto 1.3 % (0.0-1.0); Eosinophils Absolute Auto 0.11 K/mm3 (0.02-0.50); Eosinophils Percent Auto 1.6 % (1.0-6.0); Hematocrit 38.1 % (35.0-49.0); Hemoglobin 12.2 g/dL (12.0-15.0); Immature Granulocyte Absolute 0.01 K/mm3 (0.00-0.00); Immature Granulocyte Percent A 0.1 % (0.0-0.0); Lymphocytes Absolute Auto 2.95 K/mm3 (1.10-4.50); Lymphocytes Percent Auto 42.6 % (18.0-42.0); Mean Corpuscular Hemoglobin 29.8 pg (27.0-31.0); Mean Corpuscular Volume 93.2 fL (78.0-102.0); Monocytes Absolute Auto 0.47 K/mm3 (0.10-0.90); Monocytes Percent Auto 6.8 % (2.0-11.0); Neutrophils Absolute Auto 3.3 K/mm3 (1.7-7.2); Neutrophils Percent Auto 47.6 % (50.0-70.0); Platelet Count Result 335 K/mm3 (150-420); Red Blood Count 4.09 M/mm3 (4.20-5.40); White Blood Count 6.9 K/mm3 (4.8-10.8)
== END 2022-12-14 15:49 | disposition home or self-care (01) ==
LOC: CHSLAB 15:50
PROVIDERS: PCP Internal Medicine; Visit Provider Internal Medicine
DX: D64.9 Anemia, unspecified (principal)
CPT/HCPCS: 36415; 85025

== ENCOUNTER 2023-03-23 07:49 | Outpatient (CLI) | payer BC, SELFPAY ==
[2023-03-23 08:09] LABS: Appearance Urine Clear (Clear); Basophils Absolute Auto 0.09 K/mm3 (0.00-0.10); Basophils Percent Auto 1.6 % (0.0-1.0); Bilirubin Urine Negative (Negative); Blood Urine 1+ (Negative); Color Urine Yellow (Yellow); Eosinophils Absolute Auto 0.11 K/mm3 (0.02-0.50); Eosinophils Percent Auto 1.9 % (1.0-6.0); Glucose Urine UA Negative (Negative); Hematocrit 39.1 % (35.0-49.0); Hemoglobin 12.8 g/dL (12.0-15.0); Immature Granulocyte Absolute 0.01 K/mm3 (0.00-0.00); Immature Granulocyte Percent A 0.2 % (0.0-0.0); Ketones Urine Negative (Negative); Leukocyte Esterase Ur Trace (Negative); Lymphocytes Absolute Auto 2.61 K/mm3 (1.10-4.50); Lymphocytes Percent Auto 45.7 % (18.0-42.0); Mean Corpuscular HGB Conc 32.7 g/dL (32.0-36.0); Mean Corpuscular Hemoglobin 30.3 pg (27.0-31.0); Mean Corpuscular Volume 92.4 fL (78.0-102.0); Mean Platelet Volume 11.3 fl (9.2-11.8); Monocytes Absolute Auto 0.46 K/mm3 (0.10-0.90); Monocytes Percent Auto 8.1 % (2.0-11.0); Neutrophils Absolute Auto 2.4 K/mm3 (1.7-7.2); Neutrophils Percent Auto 42.5 % (50.0-70.0); Nitrate Urine Negative (Negative); Platelet Count Result 326 K/mm3 (150-420); Protein Urine Negative (Negative); Red Blood Count 4.23 M/mm3 (4.20-5.40); Red Cell Distribution Width 13.3 % (11.6-14.4); Specific Grav Ur >= 1.030 (1.010-1.020); Urobilinogen Urine 0.2 mg/dL (0.2-1.0); White Blood Count 5.7 K/mm3 (4.8-10.8); pH Urine 5.5 (5.0-8.0)
[2023-03-23 08:14] LABS: Add Urine Microscopic? YES; RBC Urine 0-2 /hpf (0-2); WBC Urine 0-3 /hpf (0-3)
[2023-03-23 08:15] LABS: Bacteria Urine 1+ /hpf; Squamous Epithelial Cell Urine Moderate /hpf (Few)
[2023-03-23 08:16] LABS: Hemoglobin A1C 5.4 % (<5.7)
[2023-03-23 08:58] LABS: Alanine Aminotransferase 40 U/L (14-59); Albumin Level 3.7 g/dL (3.4-5.0); Alkaline Phosphatase 77 U/L (46-116); Anion Gap 6 mmol/L (8-16); Aspartate Amino Transferase 11 U/L (15-37); Bilirubin,Total 0.9 mg/dL (0.00-1.00); Blood Urea Nitrogen 15 mg/dL (7-18); Calcium 9.4 mg/dL (8.5-10.1); Carbon Dioxide 31 mmol/L (21-32); Chloride 107 mmol/L (98-108); Estimated Glomerular Filt Rate > 60; Ferritin 19 ng/mL (8-252); Free T4 Free Thyroxine 0.99 ng/dL (0.76-1.46); Glucose 92 mg/dL (70-99); Iron 43 ug/dL (50-170); Osmolality Calculated 298 mOsm/kg (285-295); Potassium 4.6 mmol/L (3.5-5.1); Sodium 144 mmol/L (136-145); Thyroid Stimulating Hormone 6.21 uIU/mL (0.36-3.74); Total Protein 6.6 g/dL (6.4-8.2)
== END 2023-03-23 07:50 | disposition home or self-care (01) ==
LOC: CHSLAB 07:50
PROVIDERS: PCP Internal Medicine; Visit Provider Internal Medicine
DX: E03.8 Other specified hypothyroidism (principal); D50.0 Iron deficiency anemia secondary to blood loss (chronic); R73.01 Impaired fasting glucose
CPT/HCPCS: 36415; 80053; 81001; 82728; 83036; 83540; 84439; 84443; 84481; 85025

== ENCOUNTER 2023-03-28 16:32 | Outpatient (CLI) | payer BC, SELFPAY ==
[2023-03-28 17:02] LABS: D Dimer 0.19 mg/L (0.19-0.50)
[2023-03-28 17:28] LABS: NT Pro B Type Natriuretic Pept 124 pg/mL (0-125)
[2023-04-03 07:26] LABS: FSH 15.2 mIU/mL (***)
[2023-04-05 14:13] LABS: Estrogen 550 pg/mL
== END 2023-03-28 16:33 | disposition home or self-care (01) ==
LOC: CHSLAB 16:35
PROVIDERS: PCP Internal Medicine; Visit Provider Internal Medicine
DX: R06.00 Dyspnea, unspecified (principal); Z78.0 Asymptomatic menopausal state
CPT/HCPCS: 36415; 82672; 83001; 83002; 83498; 83880; 85380

== ENCOUNTER 2023-04-14 08:46 | Outpatient (CLI) | payer BC, SELFPAY | END 2023-04-14 08:47 | disposition home or self-care (01) | LOC: CHSCARD 08:48 | PROVIDERS: PCP Internal Medicine; Visit Provider Internal Medicine | DX: R06.02 Shortness of breath (principal); J45.909 Unspecified asthma, uncomplicated | CPT/HCPCS: 94060; 94726; 94729; 95012 ==

== ENCOUNTER 2023-06-26 15:32 | Outpatient (CLI) | payer BC, SELFPAY ==
--- NOTE | ~2023-06-26 | CT_ITS ---
EXAMINATION: CTA chest PE protocol DATE: 06/26/2023 17:31 INDICATION: Chest pain/elevated D-Dimer TECHNIQUE: Computed tomography angiography (CTA) of the chest was performed with 100 mL Omnipaque-350 intravenous contrast timed to evaluate the pulmonary arteries. Coronal maximum intensity projection 3D-reconstructions were created by the technologist. The dose-length product (DLP) was 409.16 mGy-cm. Automated exposure control and iterative reconstruction technique were employed. COMPARISON: 01/17/2018. FINDINGS: Lung parenchyma and airways: Clear. Pleura: Unremarkable. Thoracic inlet, axillae and chest wall: Unremarkable. Thoracic aorta: Normal. Mediastinum: Normal. Heart and pericardium: Normal. Coronary artery calcifications: Absent. Upper abdomen: No significant finding. Right lobe liver cyst. Bones: No acute osseous finding. Pulmonary arteries: Study quality: Motion artifact in the medial left lower lobe, overall study is di agnostic. No pulmonary emboli detected. IMPRESSION: No CT evidence of acute pulmonary embolus. No acute intrathoracic process detected. Reviewed, dictated and finalized at location K. MACHINE CONSULTANT IMPRESSION: No CT evidence of acute pulmonary embolus. No acute intrathoracic process detec tato.
[2023-06-26 15:47] LABS: Basophils Absolute Auto 0.09 K/mm3 (0.00-0.10); Basophils Percent Auto 1.3 % (0.0-1.0); Eosinophils Absolute Auto 0.12 K/mm3 (0.02-0.50); Eosinophils Percent Auto 1.7 % (1.0-6.0); Hematocrit 39.4 % (35.0-49.0); Immature Granulocyte Absolute 0.01 K/mm3 (0.00-0.00); Immature Granulocyte Percent A 0.1 % (0.0-0.0); Lymphocytes Absolute Auto 2.94 K/mm3 (1.10-4.50); Lymphocytes Percent Auto 40.8 % (18.0-42.0); Mean Corpuscular Hemoglobin 30.3 pg (27.0-31.0); Mean Corpuscular Volume 91.8 fL (78.0-102.0); Mean Platelet Volume 11.2 fl (9.2-11.8); Monocytes Absolute Auto 0.52 K/mm3 (0.10-0.90); Monocytes Percent Auto 7.2 % (2.0-11.0); Neutrophils Absolute Auto 3.5 K/mm3 (1.7-7.2); Neutrophils Percent Auto 48.9 % (50.0-70.0); Platelet Count Result 327 K/mm3 (150-420); Red Blood Count 4.29 M/mm3 (4.20-5.40); Red Cell Distribution Width 13.5 % (11.6-14.4); White Blood Count 7.2 K/mm3 (4.8-10.8)
[2023-06-26 15:49] LABS: Appearance Urine Clear (Clear); Bilirubin Urine Negative (Negative); Blood Urine 1+ (Negative); Color Urine Light Yellow (Yellow); Glucose Urine UA Negative (Negative); Ketones Urine Negative (Negative); Leukocyte Esterase Ur Negative (Negative); Nitrate Urine Negative (Negative); Protein Urine Negative (Negative); Urobilinogen Urine 0.2 mg/dL (0.2-1.0)
[2023-06-26 16:01] LABS: Add Urine Microscopic? YES; Bacteria Urine Trace /hpf; Squamous Epithelial Cell Urine Few /hpf (Few); WBC Urine None seen /hpf (0-3)
[2023-06-26 16:04] LABS: D Dimer 0.98 mg/L (0.19-0.50)
[2023-06-26 16:15] LABS: Alanine Aminotransferase 47 U/L (14-59); Albumin Level 3.8 g/dL (3.4-5.0); Alkaline Phosphatase 98 U/L (46-116); Anion Gap 6 mmol/L (8-16); Aspartate Amino Transferase 24 U/L (15-37); Bilirubin,Total 0.7 mg/dL (0.00-1.00); Blood Urea Nitrogen 14 mg/dL (7-18); Calcium 8.9 mg/dL (8.5-10.1); Carbon Dioxide 30 mmol/L (21-32); Chloride 105 mmol/L (98-108); Creatine Kinase 94 U/L (26-192); Estimated Glomerular Filt Rate > 60; Glucose 106 mg/dL (70-99); Osmolality Calculated 292 mOsm/kg (285-295); Potassium 3.9 mmol/L (3.5-5.1); Sodium 141 mmol/L (136-145); Thyroid Stimulating Hormone 8.23 uIU/mL (0.36-3.74); Total Protein 6.9 g/dL (6.4-8.2); Troponin I 30.9 ng/L (0.00-60.4)
[2023-06-26 16:16] LABS: CRP < 0.5 mg/dL (0.0-0.9)
[2023-06-27 12:09] LABS: Free T3 2.23 pg/mL (2.18-3.98)
[2023-06-27 15:14] LABS: Amylase 56 U/L (25-115); Lipase 42 U/L (16-77)
[2023-06-29 13:58] LABS: T4 Thyroxine 7.3 mcg/dL (5.9-10.3)
[2023-07-01 04:14] LABS: Thyroid Peroxidase Antibodies 84 IU/mL (<9)
[2023-07-01 09:53] LABS: Total Triiodothyronine (T3) 107.4 ng/dL (76-181)
== END 2023-06-26 15:33 | disposition home or self-care (01) ==
PROVIDERS: PCP Internal Medicine; Visit Provider Nurse Practitioner Family
DX: R07.9 Chest pain, unspecified (principal); R42 Dizziness and giddiness; R07.89 Other chest pain; R79.1 Abnormal coagulation profile
CPT/HCPCS: 36415; 71275; 80053; 81001; 82150; 82550; 82553; 83690; 83735; 84436; 84439; 84443; 84480; 84481; 84484; 85025; 85380; 86140; 86376; 87077; 87086; 87088; Q9967

== ENCOUNTER 2023-06-29 10:43 | Outpatient (CLI) | payer BC, SELFPAY ==
--- NOTE | ~2023-06-29 | US_ITS ---
EXAMINATION: US thyroid DATE: 06/29/2023 11:03 INDICATION: Hypothyroidism. TECHNIQUE: Multiple ultrasound images of the thyroid were obtained. COMPARISON: Thyroid ultrasound 12/10/2019 FINDINGS: The right thyroid lobe measures 4.0 x 1.2 x 1.5 cm. The left thyroid lobe measures 3.1 x 1.1 x 0.9 c m. There is normal echotexture and echogenicity throughout the thyroid gland. No discrete nodules id entified. Normal vascular flow is present. IMPRESSION: 1. Normal thyroid. Reviewed, dictated and finalized at location E. RY SHEAR WORKER HELPER IMPRESSION: 1. Normal thyroid.
== END 2023-06-29 10:44 | disposition home or self-care (01) ==
LOC: CHSIMG 10:44
PROVIDERS: PCP Internal Medicine; Visit Provider Nurse Practitioner Family
DX: E03.9 Hypothyroidism, unspecified (principal)
CPT/HCPCS: 76536

== ENCOUNTER 2023-12-21 11:14 | Outpatient (CLI) | payer BC, SELFPAY ==
--- NOTE | ~2023-12-21 | MM_ITS ---
EXAMINATION: MM screening dudley BI w miky HISTORY: Screening mammogram TECHNIQUE: Craniocaudal and mediolateral oblique 3-D tomosynthesis images were obtained and synthetic 2-D images were generated. CAD analysis was submitted and interpreted. COMPARISON: No prior mammogram is available for comparison at this institution. BREAST PARENCHYMAL COMPOSITION: There are scattered areas of fibroglandular density. FINDINGS: There is no evidence of suspicious mass, calcification, or architectural distortion to sugg est malignancy in either breast. IMPRESSION: 1. No mammographic evidence of malignancy. 2. Recommend routine screening mammography in one year. BI-RADS Category 1: Negative Reviewed, dictated and finalized at location A.
[2023-12-21 11:32] LABS: Basophils Absolute Auto 0.11 K/mm3 (0.00-0.10); Basophils Percent Auto 1.6 % (0.0-1.0); Eosinophils Absolute Auto 0.09 K/mm3 (0.02-0.50); Eosinophils Percent Auto 1.3 % (1.0-6.0); Hematocrit 41.2 % (35.0-49.0); Hemoglobin 13.4 g/dL (12.0-15.0); Immature Granulocyte Absolute 0.01 K/mm3 (0.00-0.00); Immature Granulocyte Percent A 0.1 % (0.0-0.0); Lymphocytes Absolute Auto 2.94 K/mm3 (1.10-4.50); Lymphocytes Percent Auto 43.8 % (18.0-42.0); Mean Corpuscular HGB Conc 32.5 g/dL (32-36); Mean Corpuscular Hemoglobin 29.3 pg (27.0-31.0); Monocytes Absolute Auto 0.62 K/mm3 (0.10-0.90); Monocytes Percent Auto 9.2 % (2.0-11.0); Neutrophils Absolute Auto 2.95 K/mm3 (1.70-7.20); Platelet Count Result 294 K/mm3 (150-420); Red Blood Count 4.58 M/mm3 (4.20-5.40); Red Cell Distribution Width 13.8 % (11.6-14.4); White Blood Count 6.7 K/mm3 (4.8-10.8)
[2023-12-21 11:34] LABS: Appearance Urine Clear (Clear); Bilirubin Urine Negative (Negative); Blood Urine Trace-intact (Negative); Color Urine Light Yellow (Yellow); Glucose Urine UA Negative (Negative); Ketones Urine Negative (Negative); Leukocyte Esterase Ur Negative (Negative); Nitrate Urine Negative (Negative); Protein Urine Negative (Negative); Urobilinogen Urine 0.2 mg/dL (0.2-1.0)
[2023-12-21 11:39] LABS: Add Urine Microscopic? YES; Bacteria Urine 1+ /hpf; Squamous Epithelial Cell Urine Few /hpf (Few); WBC Urine 0-3 /hpf (0-3)
[2023-12-21 12:14] LABS: Hemoglobin A1C 5.2 % (<5.7)
[2023-12-21 12:37] LABS: Alanine Aminotransferase 39 U/L (14-59); Albumin Level 4.2 g/dL (3.4-5.0); Alkaline Phosphatase 93 U/L (46-116); Anion Gap 10 mmol/L (4-12); Aspartate Amino Transferase 24 U/L (15-37); Bilirubin,Total 1.1 mg/dL (0.00-1.00); Blood Urea Nitrogen 13 mg/dL (7-18); Calcium 9.5 mg/dL (8.5-10.1); Carbon Dioxide 27 mmol/L (21-32); Chloride 105 mmol/L (98-108); Cholesterol 183 mg/dL (0-200); Estimated Glomerular Filt Rate > 60; Ferritin 40 ng/mL (8-252); Glucose 78 mg/dL (70-99); HDL Direct 66 mg/dL (40-60); Iron 103 ug/dL (50-170); LDL Cholesterol Calculated 96 mg/dL (<130); Osmolality Calculated 293 mOsm/kg (285-295); Potassium 4.5 mmol/L (3.5-5.1); Sodium 142 mmol/L (136-145); Total Protein 7.4 g/dL (6.4-8.2); Triglycerides 107 mg/dL (0-150)
[2023-12-22 15:19] LABS: Vitamin D 25 Hydroxy 13 ng/mL (30-100)
== END 2023-12-21 11:15 | disposition home or self-care (01) ==
PROVIDERS: PCP Internal Medicine; Visit Provider Internal Medicine
DX: Z12.31 Encounter for screening mammogram for malignant neoplasm of breast (principal); D50.0 Iron deficiency anemia secondary to blood loss (chronic); I10 Essential (primary) hypertension; R73.01 Impaired fasting glucose
CPT/HCPCS: 36415; 77063; 77067; 80053; 80061; 81001; 82306; 82728; 83036; 83540; 85025

== ENCOUNTER 2024-02-15 14:54 | Outpatient (CLI) | payer BC, SELFPAY ==
[2024-02-15 15:55] LABS: Basophils Absolute Auto 0.1 K/mm3 (0.0-0.1); Basophils Percent Auto 1.7 % (0.2-1.2); Eosinophils Absolute Auto 0.1 K/mm3 (0-0.3); Hematocrit 38.9 % (37.0-47.0); Hemoglobin 12.6 g/dL (12.0-15.0); Lymphocytes Absolute Auto 2.49 K/mm3 (0.9-3.2); Lymphocytes Percent Auto 45.8 % (18.3-44.2); Mean Corpuscular HGB Conc 32.4 g/dl (32-36); Mean Corpuscular Hemoglobin 29.7 pg (26-34); Mean Corpuscular Volume 91.7 fl (80-100); Mean Platelet Volume 12.2 fl (7.4-10.4); Monocytes Absolute Auto 0.4 K/mm3 (0.1-0.6); Monocytes Percent Auto 7.5 % (2.6-8.5); Neutrophils Absolute Auto 2.3 K/mm3 (1.3-6.7); Platelet Count Result 284 k/mm3 (150-375); Red Blood Count 4.24 M/mm3 (4.2-5.4); White Blood Count 5.4 K/mm3 (4.5-10.0)
== END 2024-02-15 14:55 | disposition home or self-care (01) ==
LOC: ANHLAB 14:56
PROVIDERS: PCP Internal Medicine; Visit Provider Obstetrics & Gynecology
DX: N92.0 Excessive and frequent menstruation with regular cycle (principal); Z01.818 Encounter for other preprocedural examination
CPT/HCPCS: 36415; 85025; 86850; 86900; 86901

== ENCOUNTER 2024-02-23 01:42 | Day surgery (SDC) | payer BC, SELFPAY ==
[2024-02-14 13:36] VITALS: BMI 33.3
--- NOTE | 2024-02-14 13:43 | PC.NURSE ---
Report to the Outpatient Waiting Room, entrance under the green pavilion located off [facility], at time _0600_ on date _[id number]_. Planned Procedure Time: _0730_. Time changes happen often and if your time is changed the preop area will call you the afternoon before. - You and your visitor will be asked to self-screen and do not enter if you have any COVID symptoms. - A mask is optional within the hospital at this time. Patients may have clear liquids (water, carbonated beverages, clear teas, apple juice) until 3 hours prior to surgery with a maximum of 20 ounces. - No food from midnight until time of surgery Take the following medications with a SIP of water the morning of surgery: ___Levothyroxine, Escitalopram and if needed Buspirone and or Albuterol DO NOT STOP ANY OF YOUR OTHER PRESCRIPTION MEDICATIONS PRIOR TO SURGERY ?EXCEPT THE FOLLOWING Medications to discontinue per physician ___Vitamin D3. Date to take last ipjg___[id number] Please no make-up, nail occitan, hairspray, perfume, deodorant, or body powder the day of surgery. No jewelry (including any body piercings) or valuables the day of surgery, leave them at home. Please take a shower or bath the night before, or the morning of, surgery with an antibacterial soap. Wear comfortable, loose fitting clothing. - Jewelry must be removed prior to entering the operating room. Rings and piercings that are not removed may be cut off. - The hospital will not accept responsibility for valuables. - Please leave all valuables, including medications, at home the day of surgery. If you are going home after surgery, a licensed chair car driver must drive you home. - NO public transportation without another adult if you receive anesthesia. - We recommend that an adult stay with you for 24 hours following discharge. - We also recommend that you do not drive, make important decision, drink alcoholic beverages, or take any drugs that were not prescribed by your health care provider for at least 24 hours after your discharge time. Follow any additional instructions given to you from your surgeon. If you or anyone in your household have experienced Covid symptoms in the past week, please notify your surgeon or the nurse liaison at the phone number below for possible testing. Telephone instructions given to __Toni___and asked if any additional questions and then verbalized understanding. Patient advised to call surgeon office or pre surgery nurse liaison [phone] if any additional questions.
--- NOTE | 2024-02-20 12:32 | P.HP_ITS ---
H&P: HPI History of Present Illness Date/Time: 02/20/24 12:32 Chief Complaint: symptomatic uterine fibroids dysmenorrhea and dyspareunia Narrative: 48 year with uterine fibroids admitted for robotic hysterectomy and salpingo- oophorectomy secondary to dysmenorrhea and dyspareunia known fibroids pain and irregular bleeding risks benefits his aspiration bleeding transfusion, perforation injury to bowel, bladder, ureters, or other internal organs with need she received the ACOG entitled hysterectomy as well as the Angélica handout. She had all questions answered. She asked to proceed PMFSH Past Medical History Medical History Asthma Hypothyroid (normal spontaneous vaginal delivery) X2 Surgical History Surgical History History of bilateral tubal ligation History of ovarian cystectomy Age 16 right side Social History Social History Smoking status: Never smoker Alcohol intake: current Alcohol use details: 2/EVERY 2-3 WEEKS Substance use: never Substance use type: does not use Living arrangements: with family Spiritual care concerns: No Meds Home Medications and Allergies Home Medications Medication Instructions Recorded Confirmed Type pantoprazole 40 mg tablet,delayed 40 mg PO BID 08/09/21 02/14/24 History release albuterol sulfate 90 mcg/actuation 2 puff inhalation QID PRN 09/17/21 02/14/24 Rx aerosol inhaler (ProAir HFA) shortness of breath or wheezing #6.7 grams buspirone 10 mg tablet 10 mg PO TID PRN Anxiety 02/14/24 02/14/24 History cholecalciferol (vitamin D3) 50 50 mcg PO DAILY 02/14/24 02/14/24 History mcg (2,000 unit) capsule (Vitamin D3) escitalopram oxalate 20 mg tablet 20 mg PO DAILY 02/14/24 02/14/24 History levothyroxine 88 mcg tablet 88 mcg PO DAILY 02/14/24 02/14/24 History Allergies Allergy/AdvReac Type Severity Reaction Status Date / Time Quinolones Allergy Mild Swelling Verified 02/14/24 13:31 azithromycin Allergy Hives Verified 02/14/24 13:31 Exam Const: General: cooperative, healthy appearing and comfortable Nutritional Appearance: overweight Orientation/consciousness: oriented to person, jose ented to place and oriented to time HENMT: Head: normal to inspection Resp: Effort & Inspection: normal respiratory effort Cardio: Rate: regular rate Rhythm: regular rhythm Heart sounds: S1 normal heart sound present and S2 normal heart sound present GI: Inspection: normal to inspection : External Female Exam: normal external appearance Speculum Exam - Vagina: normal appearance of the vagina Speculum Exam - Cervix: normal appearance of the cervix Bimanual exam- vagina & uterus: enlarged Bimanual Exam- Adnexa, other: normal adnexae Assessment and Plan Assessment and plan (1) Menorrhagia: Code(s): N92.0 - Excessive and frequent menstruation with regular cycle Status: Acute (2) Uterine fibroid: Code(s): D25.9 - Leiomyoma of uterus, unspecified Status: Acute (3) Dyspareunia: Status: Acute Assessment and Plan: robotic total vaginal hysterectomy and bilateral salpingectomy
[2024-02-23] VITALS (11 sets, daily range): BP systolic 99–133; BP diastolic 36–74; PULSE 52–100; RESP 14–20; TEMP 36.1–37; O2SAT 96–100; BMI 33.2
--- NOTE | 2024-02-23 06:24 | WPDHPUPDATE1 ---
History and Physical Update Update Date/Time: 02/23/24 06:24 History and Physical has been reviewed, including an updated exam of the patient. There are NO changes in the patient's condition. Risks, benefits, and alternatives have been discussed and questions answered. Patient agrees to proceed with procedure.
--- NOTE | 2024-02-23 06:39 | WPDHPUPDATE1 ---
History and Physical Update Update Date/Time: 02/23/24 06:39 History and Physical has been reviewed, including an updated exam of the patient. There are NO changes in the patient's condition. Risks, benefits, and alternatives have been discussed and questions answered. Patient agrees to proceed with procedure. right ovary will be removed
--- NOTE | 2024-02-23 06:40 | WPDANESEPPF ---
Anes - Initial Pre Proc Eval Procedure: Operation Date: 02/23/24 07:30 Proposed Procedures p Robotic Assisted Total Vaginal Hysterectomy with Bilateral Salpingectomy - Mathieu Piña MD Date/Time: 02/23/24 06:40 Surgeon: Mathieu Piña MD Pre Op Diagnosis: Uterine Fibroids, Pain, Irrg Bleed, Dysmenorrhea Patient Data Age: 48 Gender: F Height: 1.6 m Weight: 85.5 kg Allergies Allergy/AdvReac Type Severity Reaction Status Date / Time Quinolones Allergy Mild Swelling Verified 02/14/24 13:31 azithromycin Allergy Hives Verified 02/14/24 13:31 Home Medications Medication Instructions Recorded Confirmed Type pantoprazole 40 mg tablet,delayed 40 mg PO BID 08/09/21 02/14/24 History release albuterol sulfate 90 mcg/actuation 2 puff inhalation QID PRN 09/17/21 02/14/24 Rx aerosol inhaler (ProAir HFA) shortness of breath or wheezing #6.7 grams buspirone 10 mg tablet 10 mg PO TID PRN Anxiety 02/14/24 02/14/24 History cholecalciferol (vitamin D3) 50 50 mcg PO DAILY 02/14/24 02/14/24 History mcg (2,000 unit) capsule (Vitamin D3) escitalopram oxalate 20 mg tablet 20 mg PO DAILY 02/14/24 02/14/24 History levothyroxine 88 mcg tablet 88 mcg PO DAILY 02/14/24 02/14/24 History hydrocodone 5 mg-acetaminophen 325 1 tablet PO Q4H PRN pain #20 tabs 02/23/24 Rx mg tablet Patient hx anesthesia problems: none Family hx anesthesia problems: none Results Review: All pre-operative results and documents have been reviewed as part of the pre-operative evaluation. [facility] Past Medical History Medical History Asthma Hypothyroid (normal spontaneous vaginal delivery) X2 Surgical History Surgical History History of bilateral tubal ligation History of ovarian cystectomy Age 16 right side Social History Social History Smoking status: Never smoker Alcohol intake: current Alcohol use details: 2/EVERY 2-3 WEEKS Substance use: never Substance use type: does not use Living arrangements: with family Spiritual care concerns: No Anes - Eval Final PreProcedure Day of Procedure 02/23/24 06:40 Patient weight: obese Heart: regular rate and rhythm Lungs: clear to auscultation Airway: Mallampati scale class II Neurological: alert and oriented Last oral intake: >/= 8 hours ASA classification: II Emergent: no Anesthetic plan: proceed Anesthesia type and monitoring: general ETT and standard monitoring Results Review: All pre-operative results and documents have been reviewed as part of the pre-operative evaluation. Informed Consent: The patient's anesthetic plan and its attendant risks and benefits were discussed with the patient/family/POA. Questions were solicited and answers provided to the satisfaction of the patient/family/POA.
[2024-02-23] MEDS: LACTATED RINGERS 1,000 ML 30 ML IV CONT ×2 (06:45→08:36)
[2024-02-23] MEDS: KETOROLAC 15 MG/ML VIAL (*BKC) IV PUSH (06:51)
[2024-02-23] MEDS: SCOPOLAMINE 1 MG PATCH 1 PATCH TRANSDERM (06:51)
[2024-02-23] MEDS: ACETAMINOPHEN 500 MG TABLET 1000 MG PO (06:51)
[2024-02-23] MEDS: ceFAZolin 2 GM/D5W 50 ML 2 GM/50 ML BAG IVPB (07:24)
--- NOTE | 2024-02-23 08:24 | W.PM.PROC2 ---
Procedure Note - Detailed Date of Procedure 02/23/24 Pre-op Diagnosis Uterine Fibroids, Pain, Irrg Bleed, Dysmenorrhea Post-op Diagnosis Same Procedure Performed Robotic total vaginal hysterectomy with bilateral salpingectomy and right oophorectomy Surgeon Mathieu Piña MD Anesthesia General Indications 48-year-old female with bleeding pain and dyspareunia Findings enlarged uterus. Right ovarian cyst. Tubes status post tubal ligation. Description of Procedure Patient was prepped draped in the normal sterile fashion placed in the dorsal lithotomy position excellent general endotracheal anesthesia weighted speculum placed posterior fornix vagina. Anterior lip of the uterus cervix grasped with single-tooth tenaculum. Uterus sounded to 8cm. Serial dilatation with fragmented dilators performed. This was followed by passage of the 6. THERESA and the 3. Cold cup. Next the 16 Macedonian catheter was placed and bladder drained clear urine. Weighted speculum and single-tooth removed. The gloves were changed. A supraumbilical incision made. Veress needle passed in the abdomen. Abdomen filled with CO2 gas [id number]. The 8mm trocar advanced in the abdomen. Downside visualized no injury seen. Patient placed in 20? Trendelenburg and right left lateral quadrant incisions made. 8Mm trocars advanced under direct visualization assuring no injury. Right upper quadrant incision made the 8mm trocar advanced under direct visualization assuring no injury. The robot was docked. Attention was turned to the general counselor. The left round ligament was grasped, burned, cut. Anteriorly a bladder flap was formed by sharply dissecting the peritoneum away from the cervix and uterus and reflecting the bladder caudally to the opposite round ligament which was clamped, burned, cut. Next the partially bisected left fallopian tube was sharply dissected away from the ovarian complex and left attached at its uterine origin. The infundibulopelvic structure on the right was skeletonized, clamped, burned, cut and brought to the level of previously cut round ligament to remove the right ovary and tube. The left cardinal broad ligaments were then skeletonized after clamping burning and cutting the utero-ovarian ligament and bringing this to the level of the previously cut round ligament on the left. As noted the cardinal broad ligaments on the left were skeletonized clamping burning cutting until the large tortuous blood vessels on the left could be seen. These were individually clamped, burned, cut. In similar fashion on the right the cardinal broad ligaments were serially skeletonized clamping burning cutting and hugging the cervix and uterus to the uterine vessels could be seen on the right. These were individually clamped, burned, cut. Blanching was noted a colpotomy incision made. Cervix uterus tubes and right ovary removed through the vagina. The vagina then closed with continuous running 0V lock from lateral edge to lateral edge back to the midline. Irrigation undertaken to clear and hemostasis was assured. The raw surface area was sprinkled with [place] term. Blood loss was estimated at25cc at most. The robot was undocked. The gas removed from the abdomen. The trocars removed from the abdomen. The incisions closed with 4 Monocryl glue. Instruments removed from the vagina and the patient was awakened. She went to recovery in satisfactory condition. All sponge, needle, instrument counts were correct. There were no immediate complications noted Estimated Blood Loss 25 Drains No Packing No Pathology Yes Complications No immediate complications Condition Stable Disposition PACU
--- NOTE | 2024-02-23 08:28 | PM.DS ---
DS: Admitting Diagnosis Discharge Date 02/24/2024 Admitting Diagnosis dyspareunia/uterine fibroid DS: Discharge Diagnosis Discharge Diagnosis (1) Dyspareunia: Status: Acute (2) Uterine fibroid: Code(s): D25.9 - Leiomyoma of uterus, unspecified Status: Acute DS: Summary Hospital Course Reason for hospitalization: patient was admitted on 02/23/2024 for robotic total vaginal hysterectomy bilateral salpingectomy and right oophorectomy. The procedure was unremarkable Hospital Course: Patient's hospital course unremarkable. Catheter was removed and she was voiding without difficulty. She was up, eating regular diet, ambulating, and generally without complaints. Follow-up was to be in 2 weeks time. Routine discharge instructions were given Time Spent with Patient Time attestation: Total time spent providing and/or coordinating discharge services: Exam Const: General: cooperative, healthy appearing and comfortable Nutritional Appearance: average body habitus Orientation/consciousness: oriented to person, oriented to place and oriented to time HENMT: Head: normal to inspection Resp: Effort & Inspection: normal respiratory effort Cardio: Rate: regular rate Rhythm: regular rhythm Heart sounds: S1 normal heart sound present and S2 normal heart sound present GI: Inspection: normal to inspection and incision ( wounds are clean dry and intact) DS: Data Data Completed and Pending Pending studies at discharge: Pending at discharge 02/23/24 08:09 Surgical [PTH] Routine Discharge Plan Discharge Patient Disposition: Home, Self-Care Discharge Instructions: Remove the Scopolamine patch that was placed behind your ear in 72 hours or less. Wash your hands after touching. Stand Alone Forms: General Discharge Instructions Follow-up/Referrals: Mathieu Croft MD [Physician] - Discharge Medications: New hydrocodone-acetaminophen 5-325 mg tablet 1 tablet PO Q4H PRN (Reason: pain) Qty: 20 0RF No Action albuterol sulfate [ProAir HFA] 90 mcg/actuation HFA aerosol inhaler 2 puff inhalation QID PRN (Reason: shortness of breath or wheezing) Qty: 6.7 0RF pantoprazole 40 mg tablet,delayed release (DR/EC) 40 mg PO BID levothyroxine 88 mcg tablet 88 mcg PO DAILY escitalopram oxalate 20 mg tablet 20 mg PO DAILY buspirone 10 mg tablet 10 mg PO TID PRN (Reason: Anxiety) cholecalciferol (vitamin D3) [Vitamin D3] 50 mcg (2,000 unit) Capsule 50 mcg PO DAILY
[2024-02-23] MEDS: fentaNYL CITRATE INJ (*CRX) 100 MCG/2 ML VIAL 25 MCG IV PUSH ×8 (08:41→09:02)
[2024-02-23] MEDS: ONDANSETRON INJ 4 MG/2 ML VIAL IV PUSH (09:00)
[2024-02-23] MEDS: diphenhydrAMINE HCl INJ 50 MG/ML VIAL 25 MG IV PUSH (09:06)
[2024-02-23] MEDS: HYDROmorphone HCL INJ (*CRX) 1 MG/ML SYR 0.5 MG IV PUSH ×2 (09:15→09:26)
--- NOTE | 2024-02-23 10:08 | ADMGEN ---
This patient, Bishnu Suggs, was admitted to OB 2nd Floor Room 287-00. Patient/family oriented to hospital policies and general routines including ID bracelet, bed and alarms, visiting hours, pain management, procedures, bathroom and other care routines, personal items, smoking policy, room service/diet, and visiting hours. Information on how to activate the Rapid Response Team has been discussed. Patient/Family are encouraged to report perceived risks to care and to ask questions if they do not understand what they are told or what they should do.
[2024-02-23] MEDS: KETOROLAC 30 MG/ML VIAL (*BKC) IV PUSH (10:37)
[2024-02-23] MEDS: DEXTROSE 5%/LACTATED RINGERS 1,000 ML 125 ML IV CONT (10:37)
[2024-02-23] MEDS: HYDROcodone/acetaminophen (*CRX) 10-325 MG TABLET 1 TAB PO ×2 (12:07→15:10)
[2024-02-23] MEDS: SIMETHICONE 80 MG TAB.CHEW PO ×2 (12:07→17:35)
[2024-02-23] MEDS: ENOXAPARIN 40 MG/0.4 ML SYRINGE SUB-Q (12:07)
[2024-02-23] MEDS: DOCUSATE SODIUM 100 MG CAPSULE PO (17:35)
[2024-02-23] MEDS: HYDROcodone/acetaminophen (*CRX) 5-325 MG TABLET 1 TAB PO (19:05)
[2024-02-24] MEDS: HYDROcodone/acetaminophen (*CRX) 5-325 MG TABLET 1 TAB PO ×2 (00:24→04:01)
[2024-02-24] MEDS: IBUPROFEN 600 MG TABLET PO ×2 (00:24→07:31)
[2024-02-24 05:07] LABS: Basophils Absolute Auto 0.1 K/mm3 (0.0-0.1); Basophils Percent Auto 0.4 % (0.2-1.2); Hematocrit 36.3 % (37.0-47.0); Hemoglobin 11.9 g/dL (12.0-15.0); Immature Granulocyte Absolute 0.04 K/mm3 (0.00-0.031); Immature Granulocyte Percent A 0.3 % (0-0.5); Lymphocytes Percent Auto 15.9 % (18.3-44.2); Mean Corpuscular HGB Conc 32.8 g/dl (32-36); Mean Corpuscular Hemoglobin 30.4 pg (26-34); Mean Corpuscular Volume 92.8 fl (80-100); Monocytes Absolute Auto 0.9 K/mm3 (0.1-0.6); Monocytes Percent Auto 6.5 % (2.6-8.5); Neutrophils Absolute Auto 10.2 K/mm3 (1.3-6.7); Neutrophils Percent Auto 76.9 % (45.5-73.1); Platelet Count Result 304 k/mm3 (150-375); Red Blood Count 3.91 M/mm3 (4.2-5.4); Red Cell Distribution Width 14.1 % (11.5-14.5); White Blood Count 13.2 K/mm3 (4.5-10.0)
--- NOTE | 2024-02-24 05:51 | PM.GYNPNOP ---
MATERIAL MOVERS - A/P Assessment and plan (1) Dyspareunia: Status: Acute (2) Uterine fibroid: Code(s): D25.9 - Leiomyoma of uterus, unspecified Status: Acute Postoperative Procedures: Procedures Operation Date: 02/23/24 07:30 Actual Procedure Side Surgeon p Robotic Assisted Total Vaginal Hysterectomy with Bilateral Salpingectomy, Right Oophorectomy Right Mathieu Piña MD Postoperative day: 1 Postoperative status: doing well Postoperative plan: routine post-op care, see orders, ambulate, advance diet, voiding trials and discharge Time Spent With Patient Time: Total time spent is greater than 50% in coordination of care (as documented) at patient's floor/unit and/or counseling patient: Time with patient: less than 15 minutes MATERIAL MOVERS- PN:Subj Post-Op Subjective Date/time seen: 02/24/24 05:51 Subjective: patient reports feeling better, patient has no complaints, patient desires discharge and pain is well controlled Exam Const: General: cooperative, healthy appearing and comfortable Nutritional Appearance: average body habitus Orientation/consciousness: oriented to person, oriented to place and oriented to time Resp: Effort & Inspection: normal respiratory effort Cardio: Rate: regular rate Rhythm: regular rhythm Heart sounds: S1 normal heart sound present and S2 normal heart sound present GI: Inspection: normal to inspection and incision (cdi) MATERIAL MOVERS - PN: Obj Data Vital Signs Vital Signs: Vital Signs - 24 hr 02/23/24 06:05 02/23/24 08:36 02/23/24 09:05 Temperature 96.9 F L 97.1 F L Pulse Rate 60 81 100 Respiratory Rate 16 20 14 Blood Pressure 133/65 111/68 105/55 L Pulse Oximetry 100 100 100 Oxygen Delivery Room Air Simple Face Mask Simple Face Mask Oxygen Flow Rate 6 6 02/23/24 08:50 02/23/24 09:20 02/23/24 09:35 Temperature Pulse Rate 96 84 87 Respiratory Rate 16 14 14 Blood Pressure 115/65 110/36 L 105/66 Pulse Oximetry 99 98 100 Oxygen Delivery Simple Face Mask Simple Face Mask Room Air Oxygen Flow Rate 6 6 02/23/24 09:50 02/23/24 10:15 02/23/24 10:10 Temperature 97.2 F L 98.1 F Pulse Rate 82 87 Respiratory Rate 14 16 Blood Pressure 119/63 112/49 L Pulse Oximetry 96 98 Oxygen Delivery Room Air Room Air Oxygen Flow Rate 02/23/24 15:05 02/23/24 15:05 02/23/24 20:00 Temperature 98.6 F 98.1 F Pulse Rate 72 70 Respiratory Rate 16 18 Blood Pressure 113/62 99/54 L Pulse Oximetry 96 97 Oxygen Delivery Room Air Oxygen Flow Rate 02/23/24 20:00 Temperature Pulse Rate Respiratory Rate Blood Pressure Pulse Oximetry Oxygen Delivery Room Air Oxygen Flow Rate Intake/Output Intake/Output: Intake & Output 02/21/24 02/22/24 02/23/24 02/24/24 23:59 23:59 23:59 23:59 Intake Total 1730 Output Total 1815 Balance -85 Meds/Results Medications: Active Medications Generic Name Dose Route Start Last Admin Trade Name Freq PRN Reason Stop Dose Admin Hydrocodone Bitart/Acetaminophen 1 tab 02/23/24 09:57 02/24/24 04:01 Hydrocodone/Acetaminophen (*Crx) 5-325 Mg Tablet PO 1 tab Q3H PRN Administration Pain Rated 5 or Less Hydrocodone Bitart/Acetaminophen 1 tab 02/23/24 09:57 02/23/24 15:10 Hydrocodone/Acetaminophen (*Crx) 10-325 Mg Tablet PO 1 tab Q3H PRN Administration Pain Rated 6 or Greater Docusate Sodium 100 mg 02/23/24 09:57 02/23/24 17:35 Docusate Sodium 100 Mg Capsule PO 100 mg BID ELISHA Administration Enoxaparin Sodium 40 mg 02/23/24 09:57 02/23/24 12:07 Enoxaparin 40 Mg/0.4 Ml Syringe SUB-Q 40 mg DAILY ELISHA Administration Ibuprofen 600 mg 02/23/24 09:57 02/24/24 00:24 Ibuprofen 600 Mg Tablet PO 600 mg Q6H PRN Administration Cramping Ketorolac Tromethamine 30 mg 02/23/24 09:57 02/23/24 10:37 Ketorolac 30 Mg/Ml Vial (*Bkc) IV PUSH 02/28/24 09:56 30 mg Q6H PRN Administration Pain Rated 4-6 Naloxone HCl 0.1 mg 02/23/24 09:57 Na
[2024-02-24] MEDS: SIMETHICONE 80 MG TAB.CHEW PO (07:30)
[2024-02-24] MEDS: HYDROcodone/acetaminophen (*CRX) 10-325 MG TABLET 1 TAB PO (07:31)
[2024-02-24] MEDS: SIMETHICONE 80 MG TAB.CHEW (07:32)
[2024-02-24] MEDS: DOCUSATE SODIUM 100 MG CAPSULE PO (07:32)
[2024-02-24 07:36] VITALS: BP 109/57; PULSE 55; RESP 18; TEMP 36.7; O2SAT 100
== END 2024-02-24 10:20 | disposition home or self-care (01) ==
LOC: ANHSURGERY 06:56 → ANHOB2 10:00
PROVIDERS: PCP Internal Medicine; Visit Provider Obstetrics & Gynecology
PROC: (CPT 58552; principal; 2024-02-23 07:30)
DX: D25.1 Intramural leiomyoma of uterus (principal); N83.291 Other ovarian cyst, right side; N88.8 Other specified noninflammatory disorders of cervix uteri; N80.03 Adenomyosis of the uterus; N80.101 Endometriosis of right ovary, unspecified depth; N83.8 Other noninflammatory disorders of ovary, fallopian tube and broad ligament; J45.909 Unspecified asthma, uncomplicated; E03.9 Hypothyroidism, unspecified; E66.9 Obesity, unspecified; Z68.33 Body mass index [BMI] 33.0-33.9, adult; Z79.51 Long term (current) use of inhaled steroids
CPT/HCPCS: 58552; S2900; 36415; 85025; 88307; 99199; A9270; J0330; J0461; J0690; J1100; J1170; J1200; J1650; J1885; J2250; J2405; J2704; J3010; J7030; J7120; J7121

== ENCOUNTER 2024-08-28 15:21 | Outpatient (CLI) | payer BC, SELFPAY ==
--- NOTE | ~2024-08-28 | XR_ITS ---
XR chest 2V Ordering provider: Bruna Linares, [employer] History: 48 years Female with . PNEUMONIA?,SOB,COUGH . Comparison: July 05, 2022 FINDINGS: MEDIASTINUM: The cardiac silhouette is not enlarged. LUNGS: No effusions or pneumothorax. Minimal haziness in the left lung base is seen. OTHER: No free air under the diaphragm. IMPRESSION: Haziness in the left lung base. Atelectasis versus pneumonia is not excluded. Follow-up advised. Reviewed, dictated and finalized at location A. ER SUPERVISOR IMPRESSION: Haziness in the left lung base. Atelectasis versus pneumonia is not excluded. F ollow-up advised.
== END 2024-08-28 15:22 | disposition home or self-care (01) ==
PROVIDERS: PCP Nurse Practitioner Family; Visit Provider Nurse Practitioner Family
DX: J18.9 Pneumonia, unspecified organism (principal); R91.8 Other nonspecific abnormal finding of lung field
CPT/HCPCS: 71046

== ENCOUNTER 2024-09-12 15:37 | Outpatient (CLI) | payer BC, SELFPAY ==
--- NOTE | ~2024-09-12 | XR_ITS ---
CHEST RADIOGRAPH, PA AND LATERAL CLINICAL HISTORY: pneumonia . COMPARISON: 08/28/2024 TECHNIQUE: PA and lateral views of the chest. FINDINGS Redemonstration of left atrial enlargement. The remainder of the cardiomediastinal silhouette is otherwise unremarkable. The lungs are clear. Visualized osseous structures and soft tissues are unremarkable. IMPRESSION: No focal infiltrate or effusion. Reviewed, dictated and finalized at location A. IO RECEPTIONIST
== END 2024-09-12 15:38 | disposition home or self-care (01) ==
LOC: CHSIMG 15:38
PROVIDERS: PCP Internal Medicine; Visit Provider Nurse Practitioner Family
DX: J18.9 Pneumonia, unspecified organism (principal)
CPT/HCPCS: 71046

== ENCOUNTER 2025-01-14 16:36 | Outpatient (CLI) | payer OTHER, SELFPAY ==
--- NOTE | ~2025-01-14 | XR_ITS ---
[id number] 01/14/2025 17:29 Indication: C-spine injury for 2 weeks Procedure: 3 view cervical spine Comparison: No prior studies for comparison. Findings: Straightening of cervical lordosis. Vertebral body and disc heights are preserved. No preve rtebral soft tissue swelling. No fracture or traumatic malalignment. There is mild multilevel uncinat e degenerative change. Lung apices are normal. Odontoid process is normal. Impression: 1: Mild cervical spondylosis. Reviewed, dictated and finalized at location A. Impression: 1: Mild cervical spondylosis.
--- OUTSIDE RECORDS SUMMARY | 2025-01-14 16:45 | XMS_ITS | Clinical Summary ---
Author Organization [facility] Address [address] [place] [address] Phone Care Team Providers Care Supervisor Payroll Name Role Phone Leslie Lagunas MD Primary Care Provider [phone] Allergies Active Allergy Reactions Criticality Noted Date Comments Azithromycin Hives 01/12/2022 Grepafloxacin Swelling 01/12/2022 Facial swelling Active Problems Problem Noted Date Diagnosed Date Iron deficiency anemia Immunizations Immunization Administration Dates Next Due Influenza Vaccine, Quadrivalent, PF 04/27/2023,1 ,05/14/2020 Social History Tobacco Use Types Packs/Day Years Used Date Smoking Tobacco: Never Passive Smoke Exposure: Never Smokeless Tobacco: Never Tobacco Cessation:Counseling Given: Not Answered Comments Unknown Sex and Gender Information Value Date Recorded Sex Assigned at Not on file Legal Sex Female 4:40 PM CDT Gender Identity Not on file Sexual Orientation Not on file Last Filed Vital Signs Vital Sign Reading Time Taken Comments Blood Pressure 104/68 05/03/2023 1:39 PM CDT Pulse 76 05/03/2023 1:39 PM CDT Temperature 36.1 C (96.9 F) 05/03/2023 1:39 PM CDT Respiratory Rate 16 05/03/2023 1:39 PM CDT Oxygen Saturation 98% 05/03/2023 1:39 PM CDT Inhaled Oxygen Concentration - - Weight - - Height - - Body Mass Index - - Plan of Treatment Health Maintenance Due Date Last Done Comments Hepatitis C Virus (HCV) Screening 1977 Mammogram 1977 Hepatitis B Immunization (1 of 3 - 19+ 3-dose series) 1996 09/11/2000, 07/24/2000 Pap Smear 1998 Cervical Cancer Screening (CCS) 2007 HPV/Cotest 2007 Discussion re Starting/Frequency of Mammograms 2017 Colonoscopy 2022 Colorectal Cancer Screening 2022 SARS-COV-2 Immunization ( season) 2024 05/12/2021, 04/19/2021 Influenza Immunization (Season Ended) 2025 04/27/2023, 06/02/2022, 06/01/2021, Additional history exists Respiratory Syncytial Virus (RSV) Immunization (Adult) (1 - 1-dose 75+ series) 2052 DTaP/Tdap/Td Immunization Discontinued 2021, 10/22/2007, 11/17/2000, Additional history exists TdaP Immunization Completed 06/02/2022, 10/22/2007 Human Papillomavirus (HPV) Immunization Aged Out No longer eligible based on patient's age to complete this topic Meningococcal Immunization (ACWY) Aged Out No longer eligible based on patient's age to complete this topic Pneumococcal Immunization Combined Aged Out No longer eligible based on patient's age to complete this topic Rotavirus Immunization Aged Out No lo nger eligible based on patient's age to complete this topic [place] [address] [facility] [employer] Care Teams Supervisor Payroll Relationship Specialty Start Date End Date Leslie Lagunas MD [address] [place] [address] PCP - General Internal Medicine 04/29/20
--- OUTSIDE RECORDS SUMMARY | 2025-01-14 16:45 | XMS_ITS | Referral Summary ---
Author Organization [address] Address [address] [place] [phone] Care Team Providers Care Wafer Line Worker Name Role Phone Leslie Lagunas MD Primary Care Provider + [phone] Encounters Date Type Department Care Team Description 12/24/2024 7:20 AM CDT Lab [address] [phone] from Last 3 Months Allergies Active Allergy Reactions Criticality Noted Date Comments Azithromycin Hives,Rash Medium 01/10/2020 Grepafloxacin Rash,Swelling Medium 01/09/2020 Facial swelling Medications albuterol HFA (PROVENTIL HFA,VENTOLIN HFA,PROAIR HFA) 90 mcg/actuation inhaler Inhale 2 puffs every 6 (six) hours as needed for shortness of breath or wheezing 2 Active escitalopram (LEXAPRO) 10 mg tablet Take 1 tablet (10 mg total) by mouth daily 2 Active levothyroxine (SYNTHROID) 75 mcg tablet Take 1 tablet (75 mcg total) by mouth silverware etcher before breakfast [address] (PROTONIX) 40 mg EC tablet Take 1 tablet (40 mg total) by mouth daily 2 Active Active Problems Problem Noted Date Diagnosed Date Iron deficiency anemia 06/26/2023 SVT (supraventricular tachycardia) 01/10/2020 Palpitations 01/09/2020 Immunizations Immunization Administration Dates Next Due DTP 04/06/1982, 2,06/06/1979,01/11,12/13/1978 DTaP 11/17/2000,09/19/2000 Hep B, Adolescent or Pediatric 09/11/2000,1999 HiB 11/17/2000,09/19/2000 IPV 11/17/2000,09/19/2000 Influenza, Quadrivalent, Lexis l Culture-based MDCK, Preservative Free, Antibiotic Free, Intramuscular 06/02/2022 Influenza, Quadrivalent, Spl it, Preservative Free, Intramuscular 04/27/2023,06/01/2021,05/14/2020,06/18 MMR 07/10/1980,12/13/1978 OPV 04/06/1982, 2,06/06/1979,01/11,12/13/1978 Td, adsorbed 04/29/1992 Tdap 06/02/2022,10/22/2007 Social History Tobacco Use Types Packs/Day Years Used Date Smoking Tobacco: Never Smokeless Tobacco: Never Tobacco Cessation:Counseling Given: Yes Personal Safety Answer Date Recorded Getting School Help Needed Not on file 11/04 Comments No Sex and Gender Information Value Date Recorded Sex Assigned at Not on file Legal Sex Female 12:06 PM TOE POUNDER Gender Identity Not on file Sexual Orientation Not on file Last Filed Vital Signs Vital Sign Reading Time Taken Comments Blood Pressure 130/54 06/26/2023 12:27 PM TOE POUNDER Pulse 85 06/26/2023 12:27 PM TOE POUNDER Temperature 36.7 C (98.1 F) 06/26/2023 12:27 PM TOE POUNDER Respiratory Rate 18 06/26/2023 12:27 PM TOE POUNDER Oxygen Saturation 100% 06/26/2023 12:27 PM TOE POUNDER Inhaled Oxygen Concentration - - Weight 86.2 kg (190 lb) 06/26/2023 12:27 PM TOE POUNDER Height - - Body Mass Index - - Plan of Treatment Not on file Procedures Procedure Name Priority Date/Time Associated Diagnosis Comments EGFR Routine 12/24/2024 7:35 AM CDT URINALYSIS, MICROSCOPIC ONLY Routine 12/24/2024 7:35 AM CDT DIFFERENTIAL AUTO Routine 12/24/2024 7:3 5 AM CDT HEMOGLOBIN A1C Routine 12/24/2024 7:35 AM CDT T3, FREE Routine 12/24/2024 7:35 AM CDT CBC WITH AUTO DIFFERENTIAL Routine 12/24/2024 7:35 AM CDT TSH Routine 12/24/2024 7:35 AM CDT T4, FREE Routine 12/24/2024 7:35 AM CDT LIPID PANEL Routine 12/24/2024 7:35 AM CDT COMPREHENSIVE METABOLIC PANEL Routine 12/24/2024 7:35 AM CDT URINALYSIS AND REFLEX TO MICROSCOPIC AND CULTURE Routine 12/24/2024 7:35 AM CDT from Last 3 Months Results * eGFR (12/24/2024 7:35 AM CDT) eGFR 82 >=60 mL/min/1. 73 m2 Comment: Interpretive Data Reference Interval Normal >/= 90 mL/min/1.73m2 Mildly decreased* 60 - 89 mL/min/1.73m2 Mildly to moderately decreased 45 - 59 mL/min/1.73m2 Moderately to severely decreased 30 - 44 mL/min/1.73m2 Severely decreased 15 - 29 mL/min/1.73m2 Kidney Failure < 15 mL/min/1.73m2 *Relative to young adult level Estimated glomerular filtration rate is determined by the 2020 CKD-EPI equation recommended by the National Kidney Foundation (A Unifying Approach to GFR Estimation: Recommendations of the NKF-ASK Task Force on Reassessing the Inclusion of Race in Diagnosing Kidney Disease, JASN 202). The CKD-EPI equation should not be used for patients with unstable renal function and has not been validated in children and those over 70. Current interpretive data was last reviewed 2021. Blood 12/24/2024 7:35 AM CDT 12/24/2024 7:49 AM CDT us Leslie Lagunas MD LAB BLOOD ORDERABLES Final R esult [facility] ([place]) 1 [facility] Department of Laboratories [place], [place] [id number] * Differential, auto (12/24/2024 7:35 AM CDT) Neutrophil abs 2.23 1.50 - 6.50 K/cumm Imm gran abs 0.00 0.00 - 0.10 K/cumm [facility] ([place]) Lymphocyte abs 2.99 0.80 - 3.30 K/cumm [facility] ([place]) Monocyte abs 0.46 0.20 - 0.80 K/cumm [facility] ([place]) Eosinophil abs 0.12 0.00 - 0.50 K/cumm [facility] ([place]) Basophil abs 0.07 0.00 - 0.10 K/cumm [facility] ([place]) Neutrophil pct 38.1 % [facility] ([place]) Comment: Interpretive Data Percent cell count reference ranges are not reported, since discordance with absolute values may lead to misinterpretation of CBC data. Current Interpretive Data was last revised on 2017. Imm gran pct 0.0 % [facility] ([place]) Comment: Interpretive Data Percent cell count reference ranges are not reported, since discordance with absolute values may lead to misinterpretation of CBC data. Current Interpretive Data was last revised on 2017. Lymphocyte pct 50.9 % [facility] ([place]) Comment: Interpretive Data Percent cell count reference ranges are not reported, since discordance with absolute values may lead to misinterpretation of CBC data. Current Interpretive Data was last revised on 2017. Monocyte pct 7.8 % [facility] ([place]) Comment: Interpretive Data Percent cell count reference ranges are not reported, since discordance with absolute values may lead to misinterpretation of CBC data. Current Interpretive Data was last revised on 2017. Eosinophil pct 2.0 % [facility] ([place]) Comment: Interpretive Data Percent cell count reference ranges are not reported, since discordance with absolute values may lead to misinterpretation of CBC data. Current Interpretive Data was last revised on 2017. Basophil pct 1.2 % [facility] ([place]) Comment: Interpretive Data Percent cell count reference ranges are not reported, since discordance with absolute values may lead to misinterpretation of CBC data. Current Interpretive Data was last revised on 2017. Blood 12/24/2024 7:35 AM CDT 12/24/2024 7:49 AM CDT us Leslie Lagunas MD LAB BLOOD ORDERABLES Final R esult [facility] ([place]) 1 [facility] Department of Laboratories [place] [id number] * (ABNORMAL) Urinalysis reflex to microscopic and culture Urine (12/24/2024 7:35 AM CDT) Color, ur Yellow Yellow Clarity, ur Clear Clear [facility] ([place]) Specific gravity, ur 1.025 1.003 - 1.030 [facility] ([place]) pH, urine 6.0 [facility] ([place]) Comment: Interpretive Data U rine pH is affected by diet, medications, systemic acid-base disturbances, and renal tubular function. pH may affect urinary stone formation. For example, urine pH below 6.0 may help reduce the tendency for calcium phosphate stones and pH greater than 6.0 may reduce the tendency for uric acid stone formation. Source: [facility] Current Interpretive Data was last revised on 2017 Protein, ur ql Negative Negative [facility] ([place]) Glucose, ur ql Negative Negative [facility] ([place]) Ketones, ur Negative Negative [facility] ([place]) Bilirubin, ur Negative Negative [facility] ([place]) Blood, ur Trace(A) Negative [facility] ([place]) Urobilinogen, ur <2.0 <2.0 mg/dL [facility] ([place]) Nitrite, ur Negative Negative [facility] ([place]) Leukocyte esterase, ur Negative Negative [facility] ([place]) UA reflex comment Reflex to microscopic UA will be performed. [facility] ([place]) Urine 12/24/2024 7:35 AM CDT 12/24/2024 7:52 AM CDT us Leslie Lagunas MD LAB MICROBIOLOGY - GENERAL O RDERABLES Final Result [facility] ([place]) 1 [facility] Department [place] [address] * CBC with auto differential (12/24/2024 7:35 AM CDT) WBC 5.87 3.80 - 9.90 K/cumm Hgb 13.1 11.9 - 15.5 g/dL [facility] ([place]) Hct 39.3 35.6 - 45.5 % [facility] ([place]) Plt 346 150 - 400 K/cumm [facility] ([place]) MPV 11.3 9.1 - 12.3 fL [facility] ([place]) RBC 4.41 3.90 - 5.20 M/cumm [facility] ([place]) MCV 89.1 81.3 - 96.4 fL [facility] ([place]) MCH 29.7 27.1 - 33.3 pg [facility] ([place]) MCHC 33.3 32.3 - 35.7 g/dL [facility] ([place]) RDW CV 13.8 11.1 - 14.9 % [facility] ([place]) RDW SD 45.1 35.7 - 48.1 fL [facility] ([place]) NRBC abs 0.00 0.00 - 0.01 K/cumm [facility] ([place]) Blood 12/24/2024 7:35 AM CDT 12/24/2024 7:49 AM CDT us Leslie Lagunas MD LAB BLOOD ORDERABLES Final R esult [facility] ([place]) 1 [facility] Department [place] [address] * (ABNORMAL) Urinalysis, microscopic only (12/24/2024 7:35 AM CDT) WBC, ur 0-5 0 - 5 /HPF RBC, ur 0-2 0 - 2 /HPF [facility] ([place]) Epithelial cells, squamous, ur 1-5 0 - 5 /HPF [facility] ([place]) Bacteria, ur Trace(A) [facility] ([place]) Mucous, ur Present(A) [facility] ([place]) Culture Reflex Comment Reflex conditions for urine culture (WBC >10) not met. [facility] ([place]) Urine 12/24/2024 7:35 AM CDT 12/24/2024 7:52 AM CDT Leslie Lagunas MD LAB URINE ORDERABLES Final R esult Performing Organization Address [facility] Co de Phone Number JENNY SH[facility] ([place]) [address] [place] [address] [address] [place] [address] * T3, free (12/24/2024 7:35 AM CDT) Free T3 2.6 2.0 - 4.4 pg/mL Comment:Testing performed by : [facility], [address] [place] [address], [id number] Blood 12/24/2024 7:35 AM CDT 12/24/2024 11:13 AM CDT Leslie Lagunas MD LAB BLOOD ORDERABLES Final R esult Performing Organization Address City/[facility] Co de Phone Number [facility]ENNY SHAW ([place]) 1 [place] [address] * TSH (12/24/2024 7:35 AM CDT) Thyroid Stimulating Hormone 3.78 0.30 - 4.20 mcIUnit/mL Blood 12/24/2024 7:35 AM CDT 12/24/2024 7:49 AM CDT Leslie Lagunas MD LAB BLOOD ORDERABLES Final R esult Performing Organization Address [facility] Co de Phone Number JENNY SHAW ([place]) 1 [facility] [address] [place] [address] * T4, free (12/24/2024 7:35 AM CDT) Free T4 1.24 0.90 - 1.70 ng/dL Blood 12/24/2024 7:35 AM CDT 12/24/2024 7:49 AM CDT Leslie Lagunas MD LAB BLOOD ORDERABLES Final R esult Performing Organization Address [facility] Co de Phone Number [facility] SH[facility] ([place]) 1 [facility] [address] [place] [address] * Hemoglobin A1c (12/24/2024 7:35 AM CDT) [facility] Hgb A1C 5.3 4.0 - 5.6 % Estimated Average Glucose 105 mg/dL [facility] ([place]) Comment: The ADA recommends reporting an estimated Average Glucose (eAG) with all Hemoglobin A1c results using the equation derived from a study of 507 normal and diabetic adults. Minority populations were underrepresented and children were not included. (Diabetes Care 31:2099-7979, 2008). The eAG is not equivalent to a fasting glucose. Blood 12/24/2024 7:35 AM CDT 12/24/2024 7:49 AM CDT Leslie Lagunas MD LAB BLOOD ORDERABLES Final R esult Performing Organization Address City/[facility] Co de Phone Number JENNY SAHW ([place]) 1 [facility] [place] [address] * Lipid panel (12/24/2024 7:35 AM CDT) [facility] Cholesterol 148 30 - 199 mg/dL Comment: Interpretive Data Ages < or = 19 years Acceptable: <170 mg/dL Borderline high: 170-199 mg/dL High: >or= 200 mg/dL Ages > or = 20 years Desirable: <200 mg/dL Borderline high: 200-239 mg/dL High: >or= 240 mg/dL Literature References: 1. Expert Panel on Integrated Guidelines for Cardiovascular Health and Risk Reduction in Children and Adolescents. Pediatrics 2011;128:S213 2. NCEP Expert Panel. Circulation 2004;110:227 Current Interpretive Data was last revised on 2018. Triglycerides 81 <=149 mg/dL [facility] ([place]) Comment: Interpretive Data Ages < or = 9 years Acceptable: <75 mg/dL Borderline high: 75-99 mg/dL High: >or= 100 mg/dL Ages 10 to 20 years Acceptable: <90 mg/dL Borderline high: 90-129 mg/dL High: >or= 130 mg/dL Ages > or = 20 years Desirable: <150 mg/dL Borderline high: 150-199 mg/dL High: 200-499 mg/dL Very high: >or= 499 mg/dL Literature References: 1. Expert Panel on Integrated Guidelines for Cardiovascular Health and Risk Reduction in Children and Adolescents. Pediatrics 2011;128:S213 2. NCEP Expert Panel. Circulation 2004;110:227 Current Interpretive Data was last revised on 2018. HDL 53 >=40 mg/dL JENNY Morataya ([place]) Comment: Interpretive Data Ages < or = 19 years Acceptable: >45 mg/dL Borderline low: 40-45 mg/dL Low: <40 mg/dL Ages > or = 20 years Desirable: >or= 60 mg/dL Low: <40 mg/dL Literature References: 1. Expert Panel on Integrated Guidelines for Cardiovascular Health and Risk Reduction in Children and Adolescents. Pediatrics 2011;128:S213 2. NCEP Expert Panel. Circulation 2004;110:227 Current Interpretive Data was last revised on 2018. LDL, calculated 79 <=129 mg/dL [facility] ([place]) Comment: Interpretive Data Ages < or = 19 years Acceptable: <110 mg/dL Borderline high: 110-129 mg/dL High: >or= 130 mg/dL Ages > or = 20 years Optimal: <100 mg/dL Near optimal: 100-129 mg/dL Borderline high: 130-159 mg/dL High: >160 mg/dL Calculated using the Henao LDL-C estimating equation. This equation was implemented on 2024. Prior to this date LDL-C was estimated using the Friedewald equation. Literature References: 1. Expert Panel on Integrated Guidelines for Cardiovascular Health and Risk Reduction in Children and Adolescents. Pediatrics 2011;128:S213 2. NCEP Expert Panel. Circulation 2004;110:227 3. Juliano Isabel et al. ORACIO Cardiol. 2019December 19;5(5):540-548. doi: 10.1001/jamacardio.2020.0013 Current Interpretive Data was last revised on 2024. Non-HDL Cholesterol 95 mg/dL [facility] ([place]) Comment: Interpretive Data Ages < or = 19 years Acceptable: <120 mg/dL Borderline high: 120-144 mg/dL High: >145 mg/dL Ages > or = 20 years When triglycerides are >200 mg/dL, Non-HDL cholesterol is a secondary target of therapy with treatment goals that are 30 mg/dL greater than the LDL cholesterol target. Literature References: 1. Expert Panel on Integrated Guidelines for Cardiovascular Health and Risk Reduction in Children and Adolescents. Pediatrics 2011;128:S213 2. NCEP Expert Panel. Circulation 2004;110:227 Current Interpretive Data was last revised on 2018. Chol/HDL ratio 3 [facility] ([place]) Blood 12/24/2024 7:35 AM CDT 12/24/2024 7:49 AM CDT us Leslie Lagunas MD LAB BLOOD ORDERABLES Final R esult [facility] COLIN ([place]) 1 [facility] Department [place] [address] * Comprehensive metabolic panel (12/24/2024 7:35 AM CDT) Sodium 140 135 - 145 mmol/L Potassium, pl 4.2 3.3 - 4.9 mmol/L [facility] ([place]) Chloride 105 97 - 110 mmol/L [facility] ([place]) CO2 24 22 - 32 mmol/L [facility] ([place]) Anion gap 11 2 - 15 mmol/L [facility] ([place]) BUN 16 6 - 25 mg/dL [facility] ([place]) Creatinine 0.88 0.60 - 1.10 mg/dL [facility] ([place]) Glucose 102 70 - 199 mg/dL [facility] ([place]) Comment: Interpretive Data Fasting glucose >/= 126 mg/dl is diagnostic for diabetes. Fasting is defined as no caloric intake for at least 8 hours. Fasting glucose between 100 mg/dl to 125 mg/dl is diagnostic of prediabetes. In a patient with classic symptoms of hyperglycemia or hyperglycemic crisis, a random glucose >/= 200 mg/dl is diagnostic for diabetes. In the absence of unequivocal hyperglycemia, results should be confirmed by repeat testing. The classification and Diagnosis of Diabetes Diabetes Care 2021; 46: S19-S40. Current interpretive data was last revised 2022. Calcium 9.3 8.5 - 10.3 mg/dL [facility] ([place]) Bilirubin, total 0.6 0.1 - 1.2 mg/dL [facility] ([place]) Protein, pl 7.0 6.5 - 8.5 g/dL [facility] ([place]) Albumin 4.1 3.5 - 5.0 g/dL [facility] ([place]) Alk phos 105 40 - 130 Units/L [facility] ([place]) ALT 17 7 - 45 Units/L [facility] ([place]) AST 23 10 - 45 Units/L [facility] ([place]) Blood 12/24/2024 7:35 AM CDT 12/24/2024 7:49 AM CDT us Leslie Lagunas MD LAB BLOOD ORDERABLES Final R esult [facility] ([place]) 1 [facility] [place] [address] from Last 3 Months Insurance [employer] Care Teams Wafer Line Worker Relationship Specialty Start Date End Date Leslie Lagunas MD [address] [place] [address] PCP - General Internal Medicine 06/26/23
--- OUTSIDE RECORDS SUMMARY | 2025-01-14 16:45 | XMS_ITS | Clinical Summary ---
Author Organization [address] Address [address] [place] [id number] Care Team Providers Care Medication Care Manager Name Role Phone Leslie Lagunas MD Primary Care Provider + [phone] Allergies Active Allergy Reactions Criticality Noted Date [...] 1 tablet (75 mcg total) by mouth oilseed meat presser before breakfast [address] (PROTONIX) 40 mg EC tablet Take 1 tablet (40 mg total) by mouth daily 2 Active Active Problems Problem Noted Date Diagnosed Date Iron deficiency anemia 06/26/2023 SVT (supraventricular tachycardia) 01/10/2020 Palpitations 01/09/2020 Encounters Date Type Department Care Team Description 12/24/2024 7:20 AM CDT Lab [facility] [address] [place] [address] from Last 3 Months Immunizations Immunization Administration Dates Next Due DTP [...] on file Legal Sex Female 12:06 PM FLOOR ATTENDANT Gender Identity Not on file Sexual Orientation Not on file Obstetrics History Last Filed Vital Signs Vital Sign Reading Time Taken Comments Blood Pressure 130/54 06/26/2023 12:27 PM FLOOR ATTENDANT Pulse 85 06/26/2023 12:27 PM FLOOR ATTENDANT Temperature 36.7 C (98.1 F) 06/26/2023 12:27 PM FLOOR ATTENDANT Respiratory Rate 18 06/26/2023 12:27 PM FLOOR ATTENDANT Oxygen Saturation 100% 06/26/2023 12:27 PM FLOOR ATTENDANT Inhaled Oxygen Concentration - - Weight 86.2 kg (190 lb) 06/26/2023 12:27 PM FLOOR ATTENDANT Height - - Body Mass Index - - Plan of Treatment Health Maintenance Due Date Last Done Comments Breast Cancer Screening-Mammogram 1977 Cervical Cancer Screening 1977 Colon Cancer Screening-Colonoscopy 1977 Depression Screening 1977 Hepatitis C Screening 1977 Regular Well Visit/Exam 18-64 1995 Covid-19 Vaccine ( season) 2024 05/12/2021, 04/19/2021 Influenza Vaccine (Season Ended) 2025 04/27/2023, 06/02/2022, 06/01/2021, Additional history exists DTaP/Tdap/Td Vaccine (9 - Td or Tdap) 06/02/2032 06/02/2022, 10/22/2007, 11/17/2000, Additional history exists Hepatitis B Screening Completed 09/11/2000, 000 Pneumococcal vaccine <65 Aged Out No longer eligible based on patient's age to complete this topic Procedures Procedure Name Priority Date/Time Associated Diagnosis [...] of Race in Diagnosing Kidney Disease, JASN 2020). The CKD-EPI equation should not be used for patients with unstable renal function and has not been validated in children and those over 70. Current interpretive data was last reviewed 2021. Blood 12/24/2024 7:35 AM CDT 12/24/2024 7:49 AM CDT us Leslie Lagunas MD LAB BLOOD ORDERABLES Final R esult [facility] ([place]) 1 [facility] [place] [address] * Differential, auto (12/24/2024 7:35 AM CDT) Neutrophil abs 2.23 1.50 - 6.50 K/cumm Imm gran abs 0.00 0.00 - 0.10 K/cumm [facility] ([facility]) Lymphocyte abs 2.99 0.80 - 3.30 K/cumm [facility] ([place]) Monocyte abs 0.46 0.20 - 0.80 K/cumm [facility] ([place]) Eosinophil abs 0.12 0.00 - 0.50 K/cumm [facility] ([place]) Basophil abs 0.07 0.00 - 0.10 K/cumm [facility] ([place]) Neutrophil pct 38.1 % [facility] ([place]) Comment: Interpretive Data Percent cell count reference ranges are not reported, since discordance with absolute values may lead to misinterpretation of CBC data. Current Interpretive Data was last revised on 2017. Imm gran pct 0.0 % [facility] ([place]) Comment: Interpretive Data Percent cell count reference ranges are not reported, since discordance with absolute values may lead to misinterpretation of CBC data. Current Interpretive Data was last revised on 2017. Lymphocyte pct 50.9 % [facility] ([place]) Comment: Interpretive Data Percent cell count reference ranges are not reported, since discordance with absolute values may lead to misinterpretation of CBC data. Current Interpretive Data was last revised on 2017. Monocyte pct 7.8 % [facility] ([place]) Comment: Interpretive Data Percent cell count reference ranges are not reported, since discordance with absolute values may lead to misinterpretation of CBC data. Current Interpretive Data was last revised on 2017. Eosinophil pct 2.0 % [facility] ([place] Comment: Interpretive Data Percent cell count reference ranges are not reported, since discordance with absolute values may lead to misinterpretation of CBC data. Current Interpretive Data was last revised on 2017. Basophil pct 1.2 % [facility]) Comment: Interpretive Data Percent cell count reference ranges are not reported, since discordance with absolute values may lead to misinterpretation of CBC data. Current Interpretive Data was last revised on 2017. Blood 12/24/2024 7:35 AM CDT 12/24/2024 7:49 AM CDT us Leslie Lagunas MD LAB BLOOD ORDERABLES Final R esult [facility] 1 [facility] [place] [address] * (ABNORMAL) Urinalysis reflex to microscopic and culture Urine (12/24/2024 7:35 AM CDT) Color, ur Yellow Yellow Clarity, ur Clear Clear [facility] ([place]) Specific gravity, ur 1.025 1.003 - 1.030 [facility] ([place]) pH, urine 6.0 [facility] ([place]) Comment: Interpretive Data U rine pH is affected by diet, medications, systemic acid-base disturbances, and renal tubular function. pH may affect urinary stone formation. For example, urine pH below 6.0 may help reduce the tendency for calcium phosphate stones and pH greater than 6.0 may reduce the tendency for uric acid stone formation. Source: [facility] [email or web address] Current Interpretive Data was last revised on [...] Reflex to microscopic UA will be performed. [facility] ([place]) Urine 12/24/2024 7:35 AM CDT 12/24/2024 7:52 AM CDT us Leslie Lagunas MD LAB MICROBIOLOGY - GENERAL O RDERABLES Final Result [facility] ([place]) 1 [facility] [place] [address] * CBC with auto differential (12/24/2024 7:35 [...] 33.3 32.3 - 35.7 g/dL [facility] ([facility]) RDW CV 13.8 11.1 - 14.9 % [facility] ([place]) RDW SD 45.1 35.7 - 48.1 fL [facility] ([place]) NRBC abs 0.00 0.00 - 0.01 K/cumm [facility] ([place]) Blood 12/24/2024 7:35 AM CDT 12/24/2024 7:49 AM CDT us Leslie Lagunas MD LAB BLOOD ORDERABLES Final R esult Performing Organization Address [facility] Co de Phone Number [facility] ([place] 1 [facility] [place] [address] * (ABNORMAL) Urinalysis, microscopic only (12/24/2024 7:35 AM CDT) WBC, ur 0-5 0 - 5 /HPF RBC, ur 0-2 0 - 2 /HPF [facility]) Epithelial cells, squamous, ur 1-5 0 - 5 /HPF [facility] ([place]) Bacteria, ur Trace(A) [facility] ([place]) Mucous, ur Present(A) [facility] ([place]) Culture Reflex Comment Reflex conditions for urine culture (WBC >10) not met. [facility] ([place]) Urine 12/24/2024 7:35 AM CDT 12/24/2024 7:52 AM CDT us Leslie Lagunas MD LAB URINE ORDERABLES Final R esult Performing Organization Address [facility]/ZIP Co de Phone Number [facility] ([place]) 1 [facility] [place] [address] * T3, free (12/24/2024 7:35 AM CDT) Free T3 2.6 2.0 - 4.4 pg/mL Comment:Testing performed by : [facility], [address] [place] [address], [place]., [address] Blood 12/24/2024 7:35 AM CDT 12/24/2024 11:13 AM CDT Leslie Lagunas MD LAB BLOOD ORDERABLES Final R esult [facility] ([place]) 1 [facility] [email or web address] [address] * TSH (12/24/2024 7:35 AM CDT) Thyroid Stimulating Hormone 3.78 0.30 - 4.20 mcIUnit/mL Blood 12/24/2024 7:35 AM CDT 12/24/2024 7:49 AM CDT Leslie Lagunas MD LAB BLOOD ORDERABLES Final R esult Performing Organization Address [facility] Co de Phone Number [facility] ([place]) [address] [place] [address] [email or web address] [address] * T4, free (12/24/2024 7:35 AM CDT) Free T4 1.24 0.90 - 1.70 ng/dL Blood 12/24/2024 7:35 AM CDT 12/24/2024 7:49 AM CDT Leslie Lagunas MD LAB BLOOD ORDERABLES [facility] Performing Organization Address City/[facility] Co de Phone Number [facility] ([place]) 1 [facility] [email or web address] [address] * Hemoglobin A1c (12/24/2024 7:35 AM CDT) Hgb A1C 5.3 4.0 - 5.6 % Estimated Average Glucose 105 mg/dL [facility]) Comment: The ADA recommends reporting an estimated Average Glucose (eAG) with all Hemoglobin A1c results using the equation derived from a study of 507 normal and diabetic adults. Minority populations were underrepresented and children were not included. (Diabetes Care 31:4246-1416, 2008). The eAG is not equivalent to a fasting glucose. Blood 12/24/2024 7:35 AM CDT 12/24/2024 7:49 AM CDT us Leslie Lagunas MD LAB BLOOD ORDERABLES Final R esult [facility] ([place]) 1 [facility] [place] [address] * Lipid panel (12/24/2024 7:35 AM CDT) Cholesterol 148 30 - 199 mg/dL Comment: [...] mg/dL High: >160 mg/dL Calculated using the Juliano LDL-C estimating equation. This equation was implemented on 2024. Prior to this date LDL-C was estimated using the Friedewald equation. Literature References: 1. Expert Panel on Integrated Guidelines for Cardiovascular Health and Risk Reduction in Children and Adolescents. Pediatrics 2011;128:S213 2. NCEP Expert Panel. Circulation 2004;110:227 3. Juliano M et al. ORACIO Cardiol. 2019December 19;5(5):540-548. doi: 10.1001/jamacardio.2020.0013 Current Interpretive Data was last revised on 2024. Non-HDL Cholesterol 95 mg/dL [facility] ([place]) Comment: Interpretive Data [...] last revised on 2018. Chol/HDL ratio 3 [facility] ([place]) Blood 12/24/2024 7:35 AM CDT 12/24/2024 7:49 AM CDT us Leslie Lagunas MD LAB BLOOD ORDERABLES Final R esult [facility] ([place]) 1 [facility] [place] [address] * Comprehensive metabolic panel (12/24/2024 7:35 AM [...] BLOOD ORDERABLES Final R esult [facility] ([place]) 1 [facility] [place] [address] from Last 3 Months Insurance [facility] [employer] Address: [facility] [id number] [place] [address] Care Teams Medication Care Manager Relationship Specialty Start Date End Date Leslie Lagunas MD [address] [place] [address] PCP - General Internal Medicine 06/26/23
== END 2025-01-14 16:37 | disposition home or self-care (01) ==
LOC: CHSIMG 16:43
PROVIDERS: PCP Internal Medicine; Visit Provider Internal Medicine
DX: S19.9XXA Unspecified injury of neck, initial encounter (principal); M43.02 Spondylolysis, cervical region
CPT/HCPCS: 72040

== ENCOUNTER 2025-05-09 21:40 | Emergency (ER) | payer OTHER, SELFPAY ==
--- NOTE | ~2025-05-09 | XR_ITS ---
Examination: XR chest 2V Clinical History: MID CP Comparison: 09/24/2024 Technique: PA and Lateral Findings: Cardiomediastinal silhouette normal size and configuration. Lungs clear. No acute bony abnormality. IMPRESSION: 1. No acute cardiopulmonary findings. Reviewed, dictated and finalized at location R.
[2025-05-09 21:39] VITALS: BP 152/79; PULSE 83; RESP 20; TEMP 36.4; O2SAT 100
--- OUTSIDE RECORDS SUMMARY | 2025-05-09 21:42 | XMS_ITS | Clinical Summary ---
Author Organization [address] Address [address] [place] [id number] Care Team Providers Care Solderer Electronic Name Role Phone Leslie Lagunas MD Primary Care Provider + [phone] Allergies Active Allergy Reactions Criticality Noted Date [...] 1 tablet (75 mcg total) by mouth epic director before breakfast [address] (PROTONIX) [...] on file Legal Sex Female 12:06 PM ALUMINUM FABRICATION SUPERVISOR Gender Identity Not on file Sexual Orientation Not on file Obstetrics History Last Filed Vital Signs Vital Sign Reading Time Taken Comments Blood Pressure 130/54 06/26/2023 12:27 PM ALUMINUM FABRICATION SUPERVISOR Pulse 85 06/26/2023 12:27 PM ALUMINUM FABRICATION SUPERVISOR Temperature 36.7 C (98.1 F) 06/26/2023 12:27 PM ALUMINUM FABRICATION SUPERVISOR Respiratory Rate 18 06/26/2023 12:27 PM ALUMINUM FABRICATION SUPERVISOR Oxygen Saturation 100% 06/26/2023 12:27 PM ALUMINUM FABRICATION SUPERVISOR Inhaled Oxygen Concentration - - Weight 86.2 kg (190 lb) 06/26/2023 12:27 PM ALUMINUM FABRICATION SUPERVISOR Height - - Body Mass Index - - Plan of Treatment Health Maintenance Due Date Last Done Comments Breast Cancer Screening-Mammogram 1977 Cervical Cancer Screening 1977 Colon Cancer Screening-Colonoscopy 1977 Depression Screening 1977 Hepatitis C Screening 1977 Regular Well Visit/Exam 18-64 1995 Covid-19 Vaccine ( season) 2025 05/12/2021, 04/19/2021 Influenza Vaccine (#1) 2025 , 06/02/2022, 06/01/2021, Additional history exists DTaP/Tdap/Td Vaccine (9 - Td or Tdap) 06/02/2032 06/02/2022, 10/22/2007, 11/17/2000, Additional history exists Hepatitis B Screening Completed 09/11/2000, 000 Pneumococcal vaccine <65 Aged Out No longer eligible based on patient's age to complete this topic Insurance [employer] [employer] [facility] [employer] Address: [facility] [id number] [place] [address] Care Teams Solderer Electronic Relationship Specialty Start Date End Date Leslie Lagunas MD [address] [place] [address] PCP - General Internal Medicine 06/26/23
--- OUTSIDE RECORDS SUMMARY | 2025-05-09 21:42 | XMS_ITS | Clinical Summary ---
Author Organization [facility] Address [facility] [place] [address] Care Team Providers Care Mechanics Handyman Name Role Phone Leslie Lagunas MD Primary Care Provider [phone] Renny Trammell MD Unavailable Allergies Active Allergy Reactions Criticality Noted Date Comments Grepafloxacin Rash Low 01/09/2020 Azithromycin Rash Low 01/10/2020 Medications levothyroxine (SYNTHROID) 50 MCG tablet 04/06/2022 Active escitalopram (LEXAPRO) 10 MG tablet 04/05/2022 Active albuterol sulfate HFA 108 (90 Base) MCG/ACT inhaler 09/17/2021 Act rasheed pantoprazole EC (PROTONIX) 40 MG tablet 04/05/2022 Active amoxicillin (AMOXIL) 500 MG tablet Take 500 mg by mouth 3 (three) times daily. Active Active Problems Problem Noted Date Diagnosed Date SVT (supraventricular tachycardia) ([facility]) Palpitations 01/09/2020 Family History Medical History Relation Comments Asthma Father COPD Father Coronary artery disease Father Diabetes Mother Hypertension Mother Relation Status Comments Father Mother Social History Tobacco Use Types Packs/Day Years Used Date Smoking Tobacco: Never Smokeless Tobacco: Never Tobacco Cessation:Counseling Given: No Alcohol Use Standard Drinks/Week Comments Yes 0 (1 standard drink = 0.6 oz pur e alcohol) Infrequently Comments No Sex and Gender Information Value Date Recorded Sex Assigned at Not on file Legal Sex Female 8:46 PM CDT Gender Identity Not on file Sexual Orientation Not on file Last Filed Vital Signs Vital Sign Reading Time Taken Comments Blood Pressure 116/56 04/29/2022 12:30 AM CDT Pulse 78 04/28/2022 10:33 PM CDT Temperature 36.7 C (98 F) 04/28/2022 10:35 PM CDT Respiratory Rate 16 04/28/2022 10:33 PM CDT Oxygen Saturation 97% 04/29/2022 12:30 AM CDT Inhaled Oxygen Concentration - - Weight 79.4 kg (175 lb) 04/28/2022 10:33 PM CDT Height 160 cm (5' 3) 04/28/2022 10:33 PM CDT Body Mass Index 31 04/28/2022 10:33 PM CDT Plan of Treatment Health Maintenance Due Date Last Done Comments Cervical Cancer Screening Pap Smear (Age 30 to 64) Every 3 Years 1977 Colorectal Cancer Screening Colonoscopy (10 Years) 1977 Annual Physical 1980 Hepatitis C 1995 Hepatitis B Vaccines (1 of 3 - 19+ 3-dose series) 1996 Cervical Cancer Screening Pap with HPV Testing (Age 30 to 64) Every 5 Years 2007 Cervical Cancer Screening with HPV 2007 DTaP, Tdap and Td Vaccines (3 - Tdap) 11/17/2010 11/17/2000, 09/19/2000, 04/06/1982, Additional history exists Mammogram Screening 2017 COVID-19 Vaccine ( season) 2025 Meningococcal B Vaccine Aged Out No l onger eligible based on patient's age to complete this topic Meningococcal Vaccine Aged Out No daniel carlitos eligible based on patient's age to complete this topic Pneumococcal Vaccine: Pediatrics (0 to 5 Years) and At-Risk Patients (6 to 49 Years) Aged Out No longer eligible based on patient's age to complete this topic RSV Immunizations Under 20 Months Aged Out No longer eligible based on patient's age to complete this topic [facility] Care Teams Mechanics Handyman Relationship Specialty Start Date End Date Leslie Lagunas MD [address] [place] [address] PCP - General INTERNAL MEDICINE 12/24/19 Renny Trammell MD [address] [place] [address] EP Bi Manager CLINICAL CARDIAC ELECTROPHYSIOLOGY 12/24/19
--- NOTE | 2025-05-09 21:43 | ED.CHESTPAIN ---
HPI - Chest Pain General Chief Complaint: Chest Pain Stated Complaint: chest pain Time Seen by Provider: 05/09/25 21:43 Source: patient Mode of arrival: ambulatory Limitations: no limitations History of Present Illness HPI narrative: Patient is a 49-year-old female with some midline substernal chest pain for the past day. She has associated shortness of breath which happens regularly. No coronary disease or stents or bypass. She has a spasm feeling midsternal. Pain radiates to the right neck back and right shoulder. Patient has asthma. MD complaint: chest pain Pertinent past history: asthma Onset (ago): day(s) (One) Timing of current episode: episodic and still present Prior episodes: Yes Onset: during rest and during exertion Pain location: substernal and right chest Pain radiation: right arm, back and neck Severity: moderate Pain scale (0-10): 5 Quality: tightness, sharp and other (Spasm) Relieving factors: nothing Exacerbating factors: nothing Context: other (Patient having chest pain substernal into the right of the chest this evening and today with some baseline shortness of breath) Associated symptoms: dyspnea and sense of impending doom Treatment prior to arrival: none Risk Factors Coronary artery disease risk factors: none Thoracic aortic dissection risk factors: none Related Data On Oral Contraceptives: No Home Medications ?Medication ?Instructions ?Recorded ?Confirmed ?Last Taken ?Type pantoprazole 40 mg tablet,delayed 40 mg PO BID 08/09/21 02/23/24 02/23/24 04:00 History release buspirone 10 mg tablet 10 mg PO TID PRN Anxiety 02/14/24 02/14/24 Unknown History cholecalciferol (vitamin D3) 50 50 mcg PO DAILY 02/14/24 02/23/24 02/20/24 History mcg (2,000 unit) capsule (Vitamin D3) escitalopram oxalate 20 mg tablet 20 mg PO DAILY 02/14/24 02/23/24 02/23/24 04:00 History levothyroxine 88 mcg tablet 88 mcg PO DAILY 02/14/24 02/23/24 02/23/24 04:00 History Allergies Allergy/AdvReac Type Severity Reaction Status Date / Time Quinolones Allergy Mild Swelling Verified 05/09/25 22:03 azithromycin Allergy Hives Verified 05/09/25 22:03 Review of Systems Review of Systems: All systems reviewed & are unremarkable except as noted in HPI and below Constitutional: Constitutional: Reports no additional constitutional complaints Eyes: Eyes: Reports no additional eye complaints ENT: Reports system reviewed and no additional complaints, except as documented Cardiovascular: Cardiovascular: Reports no additional cardiovascular complaints Respiratory: Respiratory: Reports no additional respiratory complaints Gastrointestinal: Gastrointestinal: Reports no additional gastrointestinal complaints Genitourinary: Genitourinary: Reports no additional female genitourinary complaints Musculoskeletal: Musculoskeletal: Reports no additional musculoskeletal complaints Integumentary/Breasts: Skin/Breast: Reports system reviewed and no additional complaints, except as docu Neurologic: Reports system reviewed and no additional complaints, except as documented Psychiatric: Psychiatric: Reports no additional psychiatric complaints Endocrine: Endocrine: Reports no additional endocrine complaints Hematologic/Lymphatic: Hematologic/Lymphatic: Reports no additional hematologic/lymphatic complaints Allergic/Immunologic: Allergic/Immunologic: Reports no additional allergic/immunologic complaints PMFSH Past Medical History Medical History (normal spontaneous vaginal delivery) X2 Asthma Hypothyroid Surgical History Surgical History History of ovarian cystectomy Age 16 right side History of bilateral tubal ligation Social History Social History Smoking status: Never smoker Alcohol intake: current Alcohol use details: 2/EVERY 2-3 WEEKS Substance use: never Substance use type: does not use Living arrangements: with family Spiritual care concerns: No Exam Const: General: healthy appearing Nutritional Appearance: well nourished Orientation/consciousness: patient oriented x3 Limitations: other limitations (Clinical condition with anxiety) HENMT: Head: normal to inspection Ears: external ears normal Face/Nose/Sinus: Normal external nose present Eyes: Conjunctivae: conjunctivae normal Pupils: Equal, round and reactive pupils present EOM: EOMs intact bilaterally Neck: Neck: normal visual inspection Chest: Chest palpation & inspection: normal inspection of the chest and tenderness sternum and costochondral junction Resp: Effort & Inspection: normal respiratory effort and not labored Auscultation: clear to auscultation bilaterally and no crackles Cardio: Rate: regular rate Rhythm: regular rhythm Heart sounds: no murmurs GI: Inspection: non-distended GI Palp: Yes Soft to palpation and No Tenderness to palpation present (GI) Auscultation: normal bowel sounds : General: Yes bladder normal to palpation Back/Spine/Pelvis: Back: no CVA tenderness Skin: General skin exam: normal color Rashes: no rashes Wounds: no wounds Neuro: General: patient oriented x3, moves all extremities and no meningeal signs Cranial nerves: Yes Nystagmus not present Speech: normal speech Gait exam (Neuro): Normal gait present Extrem: General: normal to inspection, no clubbing, cyanosis or edema and no pedal edema Psych: Mental Status: mental status grossly normal Affect: Anxious affect present Attitude: cooperative Course Vital Signs Vital signs: Vital Signs Temperature 36.4 C 05/09/25 21:39 Pulse Rate 83 05/09/25 21:39 Respiratory Rate 20 05/09/25 21:39 Blood Pressure 152/79 H 05/09/25 21:39 Pulse Oximetry 100 05/09/25 21:39 Oxygen Delivery Room Air 05/09/25 21:39 Temperature 36.4 C L 05/09/25 21:50 Pulse Rate 76 05/09/25 23:02 Respiratory Rate 18 05/09/25 23:02 Blood Pressure 106/58 L 05/09/25 23:02 Pulse Oximetry 99 05/09/25 23:02 Oxygen Delivery Nasal Cannula 05/09/25 23:02 Oxygen Flow Rate 2 05/09/25 23:02 MDM - Chest Pain MDM Narrative Medical decision making narrative: Patient is a 49-year-old female with chest pain this evening. Some shortness of breath. We will do a cardiac workup at this time. Pain has resolved at this time. She would like to be discharged and follow-up as an outpatient. Lab Data Attestation: I reviewed the patient's lab results. 05/09/25 23:02 05/09/25 23:02 Labs: Lab Results 05/09/25 05/09/25 Range/Units 22:47 23:02 WBC 6.4 (4.8-10.8) K/mm3 RBC 4.57 (4.20-5.40) M/mm3 Hgb 13.4 (12.0-15.0) g/dL Hct 40.5 (35.0-49.0) % MCV 88.6 (78.0-102.0) fL MCH 29.3 (27.0-31.0) pg MCHC 33.1 (32-36) g/dL RDW 13.2 (11.6-14.4) % Plt Count 358 (150-420) K/mm3 MPV 10.9 (9.2-11.8) fl Immature Gran % (Auto) 0.2 H (0.0-0.0) % Neut % (Auto) 58.7 (50.0-70.0) % Lymph % (Auto) 32.5 (18.0-42.0) % Woodruff % (Auto) 6.1 (2.0-11.0) % Eos % (Auto) 1.1 (1.0-6.0) % Baso % (Auto) 1.4 H (0.0-1.0) % Lymph # (Auto) 2.07 (1.10-4.50) K/mm3 Woodruff # (Auto) 0.39 (0.10-0.90) K/mm3 Eos # (Auto) 0.07 (0.02-0.50) K/mm3 Baso # (Auto) 0.09 (0.00-0.10) K/mm3 Abs Immat Gran (auto) 0.01 H (0.00-0.00) K/mm3 Absolute Neuts (auto) 3.73 (1.70-7.20) K/mm3 Absolute Nucleated RBC 0.00 (0.00-0.00) K/mm3 Nucleated RBC % 0.0 (0-0.0) % PT 10.2 (9.50-12.1) Seconds INR 0.9 APTT 28.9 (23.9-30.70) Sec D-Dimer 0.35 (0.19-0.50) mg/L Sodium 143 (137-145) mmol/L Potassium 3.7 (3.4-5.0) mmol/L Chloride 109 H (98-107) mmol/L Carbon Dioxide 21 L (22-30) mmol/L Anion Gap 13 H (4-12) mmol/L BUN 16 (7-17) mg/dL Creatinine 0.84 (0.7-1.0) mg/dL Estim Creat Clear Calc 71 ml/min Estimated GFR > 60 (59 - ) Glucose 130 H (65-110) mg/dL Calculated Osmolality 299 H (285-295) mOsm/kg Calcium 10.1 (8.4-10.2) mg/dL Total Bilirubin 0.7 (0.2-1.3) mg/dL AST 68 H (14-36) U/L ALT 50 H (6-35) U/L Alkaline Phosphatase 119 (38-126) U/L Troponin I < 0.012 (0.000-0.034) ng/mL NT-Pro-B Natriuret Pep 63 (19.9-100) pg/mL Total Protein 8.6 H (6.3-8.2) g/dL Albumin 4.6 (3.5-5.1) g/dL Lipase 131 (23-300) U/L Urine Color Light yellow (Yellow) Urine Appearance Clear (Clear) Urine pH 7.5 (5.0-8.0) Ur Specific Cropsey <= 1.005 L (1.010-1.020) Urine Protein Negative (Negative) Urine Glucose (UA) Negative (Negative) Urine Ketones Negative (Negative) Ur Blood (Man) Negative (Negative) Urine Nitrate Negative (Negative) Urine Bilirubin Negative (Negative) Urine Urobilinogen 0.2 (0.2-1.0) mg/dL Leukocyte Esterase Rfl Negative (Negative) TOREY/UL Urine Opiates Screen Negative (Negative) Urine Methadone Screen Negative (Negative) Ur Barbiturates Screen Negative (Negative) Ur Phencyclidine Scrn Negative (Negative) Ur Amphetamine Screen Negative (Negative) U Benzodiazepines Scrn Negative (Negative) Urine Cocaine Screen Negative (Negative) U Cannabinoids Screen Negative (Negative) Imaging Data Attestation: I personally reviewed and interpreted this imaging study as follows: ECG Data EKG #1: Attestation: I personally reviewed and interpreted this ECG as follows: ECG completion date: 05/09/25 ECG completion time: 22:25 EKG Interpretation: normal rate, sinus rhythm, no ectopy, non-specific ST changes, normal QRS, normal QT and NL axis Discharge Plan Discharge Clinical Impression: Atypical chest pain Patient Disposition: Home Condition: Stable Instructions: Chest Pain (ED) Additional Instructions: Please follow-up with primary doctor in the next week. Outpatient testing such as a stress test or an echocardiogram can be done through a tube cutter or your primary doctor. Patient Language: Nepali Prescriptions: No Action albuterol sulfate [ProAir HFA] 90 mcg/actuation HFA aerosol inhaler 2 puff inhalation QID PRN (Reason: shortness of breath or wheezing) Qty: 6.7 0RF pantoprazole 40 mg tablet,delayed release (DR/EC) 40 mg PO BID levothyroxine 88 mcg tablet 88 mcg PO DAILY escitalopram oxalate 20 mg tablet 20 mg PO DAILY buspirone 10 mg tablet 10 mg PO TID PRN (Reason: Anxiety) cholecalciferol (vitamin D3) [Vitamin D3] 50 mcg (2,000 unit) Capsule 50 mcg PO DAILY hydrocodone-acetaminophen 5-325 mg tablet 1 tablet PO Q4H PRN (Reason: pain) Qty: 20 0RF Follow-up/Referrals: Leslie Lagunas MD [Primary Care Provider, Internal Medicine] Time of Disposition: 23:54
[2025-05-09 21:50] VITALS: BP 152/79; PULSE 90; RESP 20; TEMP 36.4; O2SAT 100
--- NOTE | 2025-05-09 21:50 | PC.NURSE ---
EKG COMPLETED AND SHOWN TO DR MCGRATH.
--- NOTE | 2025-05-09 21:54 | ECG_ITS ---
Test Date: 2025-05-09 21:58:39 Measurements Intervals Dyer Rate: P: LA: QRS: QRSD: T: QT: QTc: Interpretive Statements Sinus rhythm. No ischemic ST-T wave changes. Electronically Signed On 05-12-2025 14:05:56 CDT by Adal Siegel M.D.
--- OUTSIDE RECORDS SUMMARY | 2025-05-09 22:08 | XMS_ITS | Clinical Summary ---
Author Organization [address] Address [address] [place] [id number] Care Team Providers Care Straw Hat Brusher Name Role Phone Leslie Lagunas MD Primary Care Provider + [phone] Allergies Active Allergy Reactions Criticality Noted Date [...] 1 tablet (75 mcg total) by mouth light out examiner before breakfast [address] (PROTONIX) [...] on file Legal Sex Female 12:06 PM [employer] Gender Identity Not on file Sexual Orientation Not on file Obstetrics History Last Filed Vital Signs Vital Sign Reading Time Taken Comments Blood Pressure 130/54 06/26/2023 12:27 PM T[employer]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
--- OUTSIDE RECORDS SUMMARY | 2025-05-09 22:08 | XMS_ITS | Clinical Summary ---
Author Organization [facility] Address [facility] [place] [address] Care Team Providers Care Vocational Placement Specialist Name Role Phone Leslie Lagunas MD Primary Care Provider [phone] Renny Trammell MD Unavailable Allergies Active Allergy [...] Noted Date Diagnosed Date SVT (supraventricular tachycardia) ([facility] Palpitations 01/09/2020 Family History Medical History Relation [...] patient's age to complete this topic Insurance [facility] Care Teams Vocational Placement Specialist Relationship Specialty Start Date End Date Leslie Lagunas MD [address] [place] [address] PCP - General INTERNAL MEDICINE 12/24/19 Renny Trammell MD [address] [place] [id number] EP Seafood Specialist CLINICAL CARDIAC ELECTROPHYSIOLOGY 12/24/19
[2025-05-09 22:11] VITALS: BP 145/97; PULSE 72; RESP 37; O2SAT 100
--- NOTE | 2025-05-09 22:39 | PC.NURSE ---
RAUL WITH LAB UNABLE TO OBTAIN BLOOD WORK. PATIENT IS CURRENTLY AMBULATING TO THE BATHROOM.
[2025-05-09 22:44] VITALS: BP 140/69; PULSE 72; RESP 20; O2SAT 99
--- NOTE | 2025-05-09 22:48 | PC.NURSE ---
BLOOD WORK DRAWN AND TAKEN DOWN TO LAB. PATIENT IS CURRENTLY SITTING ON THE SIDE OF THE BED. STATES SHE IS COMFORTABLE AT THE SIDE OF THE BED
--- NOTE | 2025-05-09 23:00 | PC.NURSE ---
PATIENT CONTINUES TO HYPERVENTILATE. STATES SHE CANT BREATH, SHORT OF BREATH. O2 AT 2 LITERS [address]ACED VIA NC. AFTER HAVING OXYGEN IN PLACE, PATIENTS BREATHING BEGAN TO SLOW DOWN.
[2025-05-09 23:02] VITALS: BP 106/58; PULSE 76; RESP 18; O2SAT 99
[2025-05-09 23:06] LABS: Hematocrit 40.5 % (35.0-49.0); Hemoglobin 13.4 g/dL (12.0-15.0); Immature Granulocyte Percent A 0.2 % (0.0-0.0); Lymphocytes Absolute Auto 2.07 K/mm3 (1.10-4.50); Mean Corpuscular HGB Conc 33.1 g/dL (32-36); Mean Corpuscular Hemoglobin 29.3 pg (27.0-31.0); Mean Corpuscular Volume 88.6 fL (78.0-102.0); Nucleated Red Blood Cells Absolute Auto 0.00 K/mm3 (0.00-0.00); Nucleated Red Blood Cells Perc 0.0 % (0-0.0); Platelet Count Result 358 K/mm3 (150-420); Red Blood Count 4.57 M/mm3 (4.20-5.40); White Blood Count 6.4 K/mm3 (4.8-10.8)
[2025-05-09 23:14] LABS: Alanine Aminotransferase 50 U/L (6-35); Albumin Level 4.6 g/dL (3.5-5.1); Alkaline Phosphatase 119 U/L (38-126); Anion Gap 13 mmol/L (4-12); Aspartate Amino Transferase 68 U/L (14-36); Bilirubin,Total 0.7 mg/dL (0.2-1.3); Blood Urea Nitrogen 16 mg/dL (7-17); Calcium 10.1 mg/dL (8.4-10.2); Carbon Dioxide 21 mmol/L (22-30); Chloride 109 mmol/L (98-107); Estimated CRCL calculation 71 ml/min; Estimated Glomerular Filt Rate > 60; Glucose 130 mg/dL (65-110); Lipase 131 U/L (23-300); Osmolality Calculated 299 mOsm/kg (285-295); Potassium 3.7 mmol/L (3.4-5.0); Sodium 143 mmol/L (137-145); Total Protein 8.6 g/dL (6.3-8.2)
--- NOTE | 2025-05-09 23:26 | PC.NURSE ---
PATIENT UPDATED ON LAB WORK THAT HAS RESULTED. CONTINUE TO WAIT FOR TROPONIN TO RESULTS. PATIENT IS NO LONGER HYPERVENTILATING. SITTING AT THE SIDE OF THE BED WITH FAMILY AT HER SIDE. CALL LIGHT IN REACH
[2025-05-09 23:27] LABS: Cannabinoid Screen Urine Negative (Negative)
[2025-05-09 23:27] LABS: INR 0.9; Partial Thromboplastin Time 28.9 Sec (23.9-30.70); Prothrombin Time 10.2 Seconds (9.50-12.1)
[2025-05-09 23:31] VITALS: BP 100/50; PULSE 71; RESP 18; O2SAT 98
[2025-05-09 23:32] LABS: Add Urine Microscopic? NO; Appearance Urine Clear (Clear); Glucose Urine UA Negative (Negative); Leukocyte Esterase Ur Negative LEU/UL (Negative); Nitrate Urine Negative (Negative); Specific Grav Ur <= 1.005 (1.010-1.020)
[2025-05-09 23:34] LABS: NT Pro B Type Natriuretic Pept 63 pg/mL (19.9-100); Troponin I < 0.012 ng/mL (0.000-0.034)
== END 2025-05-10 00:08 | disposition home or self-care (01) ==
PROVIDERS: Emergency Provider Emergency Medicine; PCP Internal Medicine
DX: R07.89 Other chest pain (principal); E03.9 Hypothyroidism, unspecified; J45.909 Unspecified asthma, uncomplicated; Z79.899 Other long term (current) drug therapy
CPT/HCPCS: 36415; 71046; 80053; 80307; 81003; 83690; 83880; 84484; 85025; 85380; 85610; 85730; 93005; 99284